=== PATIENT | female | born 2005 | race Caucasian/White ===

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

== ENCOUNTER 2025-01-02 11:24 | Emergency (ER) | payer MEDICAID, SELFPAY ==
[2025-01-02 11:34] VITALS: BP 137/89; PULSE 100; RESP 16; TEMP 36.7; O2SAT 95; BMI 35.1
--- NOTE | 2025-01-02 11:36 | ED_ITS ---
HPI - General Adult General: Chief complaint: General Medical Stated complaint: preg test Time Seen by Provider: 01/02/25 11:25 Source: patient Mode of arrival: ambulatory Limitations: no limitations History of Present Illness: Patient is a 19-year-old female presents to ED today requesting a test. She states she is 4 days late on her menstrual cycle which are normally regular. She states she is sexually active and trying for . She is not having any abdominal or pelvic pain/cramping or vaginal bleeding. She does report nausea. She states she plans on using Dr. Warren for OB care and does have an appointment with them tomorrow. Severity: mild Relieving factors: none Exacerbating factors: none Associated symptoms: Reports nausea; Deny chest pain, dyspnea or vomiting Treatments prior to arrival: none Related Data Allergies Allergy/AdvReac Type Severity Reaction Status Date / Time Penicillins Allergy RASH Verified 08/10/24 20:34 Review of Systems Const: Denies: fever(s) Card: Denies: chest pain Resp: Denies: dyspnea GI: Reports: nausea; Denies: abdominal pain, vomiting or change in bowel habits : Denies: flank pain, dysuria, hematuria or vaginal bleeding Musc: Denies: back pain PFSH ED PFSH: Medical History Normal vaginal delivery Spontaneous vaginal delivery No significant past medical history Surgical History S/P arthroscopic partial lateral meniscectomy of left knee Date of procedure: June 23, 2024 Pre-op diagnosis: 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 Procedure done: Right arthroscopic knee surgery with partial lateral meniscectomy, chondroplasty of the patella, and synovectomy. Surgeon: Mary Lou Quevedo MD. Status post laparoscopic cholecystectomy (06/20/21) S/P laparoscopic appendectomy (08/21/20) H/O myringotomy S/P tonsillectomy and adenoidectomy Social History Smoking and tobacco/nicotine status: never used tobacco/nicotine Second hand smoke exposure: No Alcohol intake: never Substance/Drug Use: never Physical Exam Const: COMMON NORMALS: no acute distress, average body habitus, no limitations, healthy appearing, alert and well nourished GENERAL APPEARANCE: cooperative GI: COMMON NORMALS: Normal to inspection, nondistended, normoactive bowel sounds present, Soft to palpation and non-tender PALPATION: Yes Soft to palpation Neuro: SENSORIUM/ORIENTATION: Yes alert Course Vital Signs: Vital signs: Vital Signs Temperature 98.1 F 01/02/25 11:34 Pulse Rate 100 01/02/25 11:34 Respiratory Rate 16 01/02/25 11:34 Blood Pressure 137/89 01/02/25 11:34 Pulse Oximetry 95 01/02/25 11:34 Oxygen Delivery Me thod Room Air 01/02/25 11:34 MDM - General Adult Medical Decision Making test is positive. There is nothing further that needs to be done emergently. She is not having any abdominal/pelvic pain. No vaginal bleeding. Plan will be to follow-up with Dr. Warren as scheduled tomorrow. Medical Records I reviewed the patient's medical records. Lab Data I reviewed the patient's lab results. Laboratory Results HCG, Qual Positive (Negative) H 01/02/25 11:30 No radiology studies performed this visit Discharge Plan Discharge Patient Disposition: Home Clinical Impression: Qualifiers: Weeks of gestation: unspecified Qualified Code(s): Z34.90 - Encounter for supervision of normal , unspecified, unspecified trimester Condition: Stable Discharge Orders: Discharge ED (Routine); Ordered 01/02/25 Ordered By: Leta Klein Referrals: Tulio Warren MD [Primary Care Provider, Family Practice] Patient Instructions: Patient Portal & Homero Instructions Activity Restrictions/Additional Instructions: As we discussed, your test here in the emergency department was positive. Please follow-up with Dr. Warren as scheduled tomorrow. Print Language: Azeri Coding Level of Care Code ED Sound System Installer for Narciso Horan
[2025-01-02 11:41] LABS: HCG Qualitative Urine. Positive (Negative)
== END 2025-01-02 11:45 | disposition home or self-care (01) ==
PROVIDERS: Emergency Medicine; Emergency Provider Physician Assistant; PCP Family Medicine
DX: Z32.01 Encounter for pregnancy test, result positive (principal)
CPT/HCPCS: 81025; 99283

== ENCOUNTER 2025-04-11 23:39 | Emergency (ER) | payer MEDICAID, SELFPAY ==
[2025-04-11 23:45] VITALS: BP 118/74; PULSE 115; RESP 18; TEMP 36.8; O2SAT 97; BMI 37.5
--- OUTSIDE RECORDS SUMMARY | 2025-04-11 23:45 | XMS_ITS | Continuity of Care Document ---
Author Organization [facility] [place], [facility] ([facility]) Address [address] [place] [address] Care Team Providers Care Process Checker Name Role Phone HERBERT WARREN Primary Care Provider Assessment No assessment recorded. Plan of Treatment Reminders Order Date Submit Date Provider Last Modified By Organization Details Last Modified Time Details Appointments RETURN OB 2024 01:45P M Herbert Warren MD Not available Not available Not available RETURN OB 2025 01:30P M Herbert Warren MD Not available Not available Not available ULTRASO UND 2025 02:30P M ULTRASOUND Not available Not available Not available RETURN OB 2025 01:30P M Herbert Warren MD Not available Not available Not available RETURN OB 2025 01:30P M Herbert Warren MD Not available Not available Not available RETURN OB 2025 01:30P M Herbert Warren MD Not available Not available Not available RETURN OB 2025 01:30P M Herbert Warren MD Not available Not available Not available RETURN OB 2025 01:30P M Herbert Warren MD Not available Not available Not available RETURN OB 2025 01:30P M Herbert Warren MD Not available Not available Not available RETURN OB 2025 01:30P M Herbert Warren MD Not available Not available Not available RETURN OB 2025 01:30P M Herbert Warren MD Not available Not available Not available RETURN OB 2025 01:30P M Herbert Warren MD Not available Not available Not available RETURN OB 2025 01:30P M Herbert Warren MD Not available Not available Not available Lab None recorde d. Referral None recorde d. Procedures None recorde d. Surgeries None recorde d. Imaging None recorde d. Medication Orders None recorde d. Patient TargetsNo targets recorded. Patient InstructionsNo instructions recorded. Reason for Referral None Reported. Results Created Date Observation Date Name Description Value Unit Range Abnormal Flag Note LastModifiedBy Organization Detail LastModifiedTime 02/01/2001/19/2025 US, obste tric, 1st trime ster No observ ation record ed. [email or web address] [facility] [place] ([facility]) [address] [place], [address], 01/31/2025 17:19:55 Result Notes None recorded. Problems Name Problem SNOMED Code Status Onset Date Resolution Date Notes Provider Name and Address Organization Details Recorded Time Otitis 43910593 Active 2021 OTITIS; 02/11/20 9:46AM by Kathy Hilliard, Office Visit; Promoted ; acuity set as *; OTITIS, RIGHT; 02/11/20 9:47AM by Kathy Hilliard, Office Visit; Promoted ; acuity set as *; KATHY celis [facility] 3 11:46:16 Anxiety 98610115 Active 2022 KATHY celis [facility] 3 11:46:16 Acne vulgaris 49083567 Active 2022 KATHY celis [facility] 3 11:46:16 Sprain of right knee 86667068239 578170 Active 2022 Herbert Warren MD [address] [place] [address], [phone], [facility] 16:24:18 Pregnanc y 18694604 Completed 202201/27/2024 Sandy celis [facility] 5 12:33:11 Gestatio n period, 11 weeks 05237476 Active 2023 Herbert Warren MD [address] [place] [address], [phone] 5, [facility] 4 10:51:57 Gestatio n period, 15 weeks 5955787 Active 2023 Herbert Warren MD [address] [place] [address], [phone] 5, [facility] 4 18:26:38 Gestatio n period, 19 weeks 20811524 Active 2023 Herbert Warren MD [address] [place] [address], [phone] 5, [facility] 4 10:52:28 Gestatio n period, 23 weeks 41967181 Active 2023 Herbert Warren MD [address] [place] [address], [phone] 5, [facility] 4 16:57:20 Gestatio n period, 27 weeks 86835276 Active 2023 Herbert Warren MD [address] [place] [address], [phone] 5, [facility] 4 16:22:57 Gestatio n period, 30 weeks 07878892 Active 2023 Herbert Warren MD [address] [place] [address], [phone] 5, [facility] 4 08:36:42 Gestatio n period, 31 weeks 36859523 Active 2023 Herbert Warren MD [address] [place] [address], [phone] 5, [facility] 4 16:35:11 Gestatio n period, 34 weeks 69916017 Active 2023 Herbert Warren MD [address] [place] [address], [phone] 5, [facility] 4 17:19:46 Gestatio n period, 37 weeks 74596499 Active 2023 Herbert Warren MD [address] [place] [address], [phone] 5, [facility] 4 16:41:10 Gestatio n period, 38 weeks 69617180 Active 2023 Herbert Warren MD [address] [place] [address], 55[address]-433 5, [facility] 4 14:05:05 Gestatio n period, 39 weeks 11908812 Active 2023 Herbert Warren MD [address] [place] [address], [phone] 5, [facility] 4 08:28:39 Superfic ial thrombop hlebitis 3406436 Active 2023 Herbert Warren MD [address] [place] [address], [phone] 5, [facility] 4 09:23:19 Mass of joint of right knee 42378325824 345288 Active 2023 Herbert Warren MD [address] [place] [address], [phone] 5, [facility] 4 12:13:15 Pain of right knee region 22457357202 4105 Active 2023 Herbert Warren MD [address] [place] [phone] 5, [facility] 4 17:09:03 Contact dermatit is 21139092 Active 2024 Herbert Warren MD [address] [place] [address] [phone] 5, [facility] 5 13:12:04 Seasonal allergic rhinitis 171806978 Active 2024 Herbert Warren MD [address] [place] [address], 78266-041 5, [facility] 5 13:12:11 Pregnanc y 23423704 Active 2024 [facility] 12:33:11 Postural dizzines s 456903123 Active 2024 Herbert Warren MD [address] [place] [address] 5, [facility] 5 17:49:13 Acute gastroen teritis 30112048 Active 2024 eHrbert Warren MD [address] [place] [address] 5, [facility] 17:49:26 Gestatio n period, 14 weeks 18738168 Active 2024 Herbert Warren MD [address] [place] [phone] 5, [facility] 15:38:26 Problem Notes None recorded. Procedures Surgical History Date Name Laterality Status Provider Name and Address Organization Details Recorded Time Appendectomy completed Telma Cote [facility] 06/15/2024 17:40:43 procedure on urinary bladder completed Telma Cote [facility] 06/15/2024 17:40:52 tonsilectomy/arpita oids completed KATHY ARMINDA [facility] 11/05/2022 16:00:00 Imaging Results None recorded. Procedure Notes None recorded. Medical Equipment None Reported. Allergies Allergen ID Allergen Name Allergen Category Reaction Reaction Severity Criticality Documentation Date Start Date Code Code System Note Provider Name and Address Organization Details Recorded Time 5042 Product containin g penicilli n (product) medicatio n Not available Not available Not available 11/04/2022 67303 8001 SNOMED KATHY HILLIARD lalita [facility] 14:22:05 5043 amoxicill in medicatio n Not available Not available Not available 11/04/2022 723 RxNorm KATHY DAWNG [facility]alita [facility] 16:11:49 06428 codeine medicatio n rash Not available low 12/26/2022 2670 RxNorm KATHY ARMINDAJohn celis [facility] 16:12:05 Medications Name Sig Start Date Stop Date Status Note LastModified by Organization Details LastModified Time clindamyc in HCl 300 mg capsule TAKE 1 CAPSULE BY MOUTH THREE TIMES DAILY 11/05 completed Not Available Not Available Not Available cetirizin e 10 mg tablet TAKE 1 TABLET BY MOUTH ONCE DAILY 01/03 completed Not Available Not Available Not Available azithromy kong 250 mg tablet TAKE 2 TABLETS BY MOUTH ON DAY 1, AND THEN TAKE 1 TABLET BY MOUTH ONCE A DAY ON DAY 2 THROUGH DAY 5 11/05 completed Not Available Not Available Not Available tretinoin 0.025 % topical cream APPLY TO THE AFFECTED AREA(S) BY TOPICAL ROUTE ONCE DAILY AT BEDTIME 12/26 completed Not Available Not Available Not Available triamcino lone acetonide 0.1 % topical cream APPLY TO AFFECTED AREAS 2-3 TIMES A DAY NEEDED FOR ITCHING AND RASH 11/05 completed Not Available Not Available Not Available Macrobid 100 mg capsule Take 1 capsule every 12 hours by oral route for 7 days. 12/26 completed Not Available Not Available Not Available cephalexi n 500 mg capsule TAKE 1 CAPSULE BY MOUTH EVERY 6 HOURS 01/24 completed Not Available Not Available Not Available ibuprofen 600 mg tablet TAKE 1 TABLET BY MOUTH EVERY 6 HOURS NEEDED FOR PAIN 04/10 completed Not Available Not Available Not Available ondansetr on 4 mg disintegr ating tablet DISSOLVE 1 TABLET IN MOUTH EVERY 4 TO 6 HOURS NEEDED FOR NAUSEA 01/03 completed Not Available Not Available Not Available cefdinir 300 mg capsule TAKE 1 CAPSULE BY MOUTH TWICE DAILY FOR 7 DAYS 01/03 completed Not Available Not Available Not Available fluticaso ne propionat e 50 mcg/actua tion nasal spray,georgette pension Winkelman 1 spray every day by intranas al route. 03/14 completed Not Available Not Available Not Available Vitamin 27 mg iron-0.8 mg tablet Take 1 tablet every day by oral route. 01/24 completed Not Available Not Available Not Available Sprintec (28) 0.25 mg-0.035 mg tablet TAKE 1 TABLET BY MOUTH ONCE DAILY 04/19 completed Not Available Not Available Not Available Ciprodex 0.3 %-0.1 % ear drops,georgette pension INSTILL 4 DROPS INTO AFFECTED EAR(S) INTO LEFT EAR TWICE DAILY FOR 7 DAYS 11/05 completed Not Available Not Available Not Available Flovent HFA 220 mcg/actua tion aerosol inhaler INHALE 1 PUFF BY MOUTH TWICE DAILY active Not Available Not Available No t Available clindamyc in HCl three times daily 12/10 completed 0; Recorded 02/11/20 22 9:50AM by Kathy Hilliard, Office Visit; Not Available Not Available Not Available ProAir HFA 90 mcg/actua tion aerosol inhaler as needed 12/10 completed 0; Recorded 02/11/20 22 9:49AM by Kathy Hilliard, Office Visit; Not Available Not Available Not Available diclofena c 1 % topical gel APPLY 4 GRAMS TO THE AFFECTED AREA(S) BY TOPICAL ROUTE 4 TIMES PER DAY 06/15 completed Not Available Not Available Not Available Plus 29 mg iron-1 mg tablet Take 1 tablet every day by oral route. 01/16 completed Not Available Not Available Not Available Vitamins Plus Low Iron 27 mg iron-1 mg tablet TAKE 1 TABLET BY MOUTH ONCE DAILY active Not Available Not Available No t Available ProAir RespiClic k 90 mcg/actua tion breath activated Inhale 2 puffs every 4 hours by inhalati on route as needed. 12/26 completed Not Available Not Available Not Available Vitals Date Recorded Body height Body mass index (BMI) [Percentile] Per age and sex Body mass index (BMI) Body weight Oxygen saturation Heart rate Respiratory rate Body temperature Systolic And Diastolic Provider Name and Address Organization Details Last Updated DateTime 157.48 cm 97.88 % 37.1 kg/m2 52543.2 5 g 99 % 82 /min 16 /min 98.2 [degF] 122/80 mm[Hg] Telma Martekristine [facility] 14:03:38 Social History Question Answer Notes LastModified by [employer] Details LastModified Time Tobacco Smoking Status Never Smoker Marion Karkristine [facility] 06/15/2024 17:40:23 What Is Your Level Of Caffeine Consumption? None [email or web address] Information not available 02/14/2025 Do You Or Have You Ever Used Marijuana? Never Used [email or web address] Information not available 02/14/2025 What Was The Date Of Your Most Recent Tobacco Screening? 03/14/2025 [email or web address] Information not available 03/14/2025 Sex: Unknown Functional Status Question Answer Note LastModified by [employer] Details LastModified Time Do you use any illicit or recreational drugs? No [email or web address] Information not available 02/14/2025 What is your level of alcohol consumption? None [email or web address] Information not available 02/14/2025 Mental Status None recorded. Family History Relationship Description Onset Age of this Age Resolved Age Notes LastModified by Organization Details LastModified Time Father Iron deficiency [email or web address] Not available 11/05 16:00:37 Notes:Iron Deficiency; Fathe r Medical History No medical history recorded. Gynecological History Statement/Question Response Flow Moderate Date of LMP 02/25/2023 LMP Definite Obstetrics History GPAL:G 2 P 1 0 0 1 Type Value Multiple Births 0 Full Term 1 Induced 0 Spontaneous 0 Premature 0 Living 1 Ectopics 0 Total 2 Immunizations Vaccine Type Date Status Note Provider Nam e and Address Organization Details Recorded Time HPV9 9 completed KATHY celis, [facility] 04/10/2023 08:15:44 IPV 9 completed KATHY celis [facility] 04/10/2023 08:15:44 MMR 1 completed KATHY celis [facility] 04/10/2023 08:15:44 MMR 7 completed KATHY celis [facility] 04/10/2023 08:15:44 pneumococcal conjugate PCV 7 6 [facility] 04/10/2023 08:15:44 pneumococcal conjugate PCV 7 7 completed KATHY celis [facility] 04/10/2023 08:15:44 pneumococcal conjugate PCV 7 6 [facility] 04/10/2023 08:15:44 pneumococcal conjugate PCV 7 7 completed KATHY celis [facility] 04/10/2023 08:15:44 DTaP-IPV 1 completed KATHY celis [facility] 04/10/2023 08:15:44 Tdap 9 completed KATHY celis [facility] 04/10/2023 08:15:44 Pneumococcal conjugate PCV 13 1 completed KATHY celis [facility] 04/10/2023 08:15:44 varicella 1 completed KATHYSA HILLIARD null, [facility] 04/10/2023 08:15:44 varicella 7 completed KATHY ARMINDA null, [facility] 04/10/2023 08:15:44 HPV, quadrivalent 9 completed KATHY ARMINDA null, [facility] 04/10/2023 08:15:44 Hep B, adolescent or pediatric 6 completed KATHY ARMINDA null, [facility] 04/10/2023 08:15:44 Hep A, ped/adol, 2 dose 8 completed KATHY DAWNG null, [facility] 04/10/2023 08:15:44 Hep A, ped/adol, 2 dose 9 completed KATHY HILLIARD null, [facility] 04/10/2023 08:15:44 Hib (PRP-T) 6 completed KATHY HILLIARD null, [facility] 04/10/2023 08:15:44 Hib (PRP-T) 7 completed KATHY HILLIARD null, [facility] 04/10/2023 08:15:44 Hib (PRP-T) 6 completed KATHY DAWNG null, [facility] 04/10/2023 08:15:44 Hib (PRP-T) 7 completed KATHY HILLIARD null, [facility] 04/10/2023 08:15:44 meningococcal MCV4P 9 completed KATHY DAWNG null, [facility] 04/10/2023 08:15:44 DTaP 8 completed KATHY DAWNJohn celis [facility] 04/10/2023 08:15:44 DTaP-Hep B-IPV 6 completed KATHY DAWNJohn celis [facility] 04/10/2023 08:15:44 DTaP-Hep B-IPV 7 completed KATHYSA ARMINDA celis [facility] 04/10/2023 08:15:44 DTaP-Hep B-IPV 6 completed KATHYSA ARMINDA celis [facility] 04/10/2023 08:15:44 meningococcal conjugate quadrivalent, MenACWY-TT (MCV4) 3 completed Not Available [facility] 03/14/2025 14:14:40 Tdap 4 completed Not Available [facility] 03/14/2025 14:14:40 Hep B, adolescent or pediatric 8 completed KATHY ARMINDAJohn celis [facility] 04/10/2023 08:15:44 Past Encounters Encounter ID Performer Location Encounter Start Date Encounter Closed Date Diagnosis/Indication Diagnosis SNOMED-CT Code Diagnosis ICD10 Code Diagnosis IMO Codes Diagnosis Note [id number] Herbert Warren MD [facility] ([facility]) [address] [place] [phone] 5 01/03/2025 12:29:45 01/03/2025 13:06:54 Normal in multigravida 6364920664 75246 Z34.80 82189964 Schedule the patient for for semester ultrasound . Will start her on prenatals. We will hold off on lab work at this time. No significan t concerns. Guidance provided on new . [id number] eHrbert Warren MD [facility] ([facility]) [address] [place] [phone] 5 01/09/2025 15:53:07 01/09/2025 16:26:52 Postural dizziness 117111007 R42 19677899 The patient to push fluids. Will provide a note for work to minimize bending kneeling and stooping. No lifting greater than 10 pounds at this time. Acute gastroenteritis 69 454346 K52.9 8743 Patient has mild gastroente ritis and this will likely resolve without further interventi on. Push fluids as above. [id number] PEPITO BERNSTEIN [facility] ([facility]) [address] [place] [address] 01/16/2025 13:50:58 01/16/2025 15:50:09 Blood pressure above reference range 82782568 R03.0 091119 BP reading normal here in clinic. Reassuranc e provided. Continue monitoring bp BID and call OB with results. Health Concerns Section Related Observation LastModified by Organization Detai ls LastModified Time None Recorded Concern Status LastModified by Organization Details LastModified Time None Recorded Payers Encounter Date Sequence Insurance Name Policy Number Policy Ro Covered Member ID Ro Member ID Guarantor Name 01/16/2025 1 [facility] (MEDICAID HMO) Lorenza Cerna [id number] Lorenza Cerna Notes Date Note Type Note Provider Name and Address Organization Details Recorded Time 5 text/html HypertensionReported by PatientROS as noted in the HPI walk in patientpatient is here today for hypertension, patient said that her blood pressure has been around 160/148 and she is 6 weeks . OB has asked her to check her bp twice a day and write down. Pt has her first OB US this week. Next OB appt is in February. No prior hx of HTN PEPITO BERNSTEIN [address] [place] [address], [phone], [facility] [place] 01/16/2025 15:44:16 OBGyn Episode Ob Episode Information Episode Created Date Number of Fetuses Patient Bloodtype Patient rh Status Prepregnancy Weight lbs Domestic Partner Domestic Partner Phone Father Name Sap Manager Status 01/04/20 25 1 A Positive [address] [place] OPEN Fetus Data First Name Last Name Admitted to NICU Weight (g) Sex Living Outcome Pediatric Complications Fetus ID Race Codes Race Delivery Type [id number] Zeeshan Calculation Initial Zeeshan Date Initial Exam Date Initial Exam Provider Initial Ultrasound Date Last Menstrual Period Date Ultra Sound Weeks Gestation 01/03/2025 01/18/2025 12/01/2024 6 Eighteen To Twenty Week Zeeshan Update Ultra Sound Date Fundal Height At Umbil Quickening Date Ultra Sound Latest Weeks Gestation Final Zeeshan Confirmed By Final Zeeshan Confirmed Date Final Zeeshan Date Ultra Sound Latest Days Gestation 0 09/13/19 26 0 Pre-margarito Flowsheet Flowsheet Date 01/03/2025 Tristan Score Blood Edema Fundus Height Fundus Units Glucose Ketones Leukocytes Nitrite Labor Signs Protein Cervic Dilation Cervic Effacement Cervic Station Type Weight in lbs Pre/Post Dialysis Refused Weight 205.105451186535 BP Diastolic BP Location Tested BP Systolic BP Type 74 122 Fetus Heart Rate Present Fetus Movement Comments Flowsheet Date 01/09/2025 Tristan Score Blood Edema Fundus Height Fundus Units Glucose Ketones Leukocytes Nitrite Labor Signs Protein Cervic Dilation Cervic Effacement Cervic Station Type Weight in lbs Pre/Post Dialysis Refused With clothes 206.142714158500 BP Diastolic BP Location Tested BP Systolic BP Type 90 L arm 142 sitting Fetus Heart Rate Present Fetus Movement Comments Flowsheet Date 01/16/2025 Tristan Score Blood Edema Fundus Height Fundus Units Glucose Ketones Leukocytes Nitrite Labor Signs Protein Cervic Dilation Cervic Effacement Cervic Station Type Weight in lbs Pre/Post Dialysis Refused Weight 203.966554872269 BP Diastolic BP Location Tested BP Systolic BP Type 80 122 Fetus Heart Rate Present Fetus Movement Comments Flowsheet Date 01/18/2025 Tristan Score Blood Edema Fundus Height Fundus Units Glucose Ketones Leukocytes Nitrite Labor Signs Protein Cervic Dilation Cervic Effacement Cervic Station Type Weight in lbs Pre/Post Dialysis Refused BP Diastolic BP Location Tested BP Systolic BP Type Fetus Heart Rate Present Fetus Movement Comments Flowsheet Date 02/14/2025 Tristan Score Blood Edema Fundus Height Fundus Units Glucose Ketones Leukocytes Nitrite Labor Signs Protein Cervic Dilation Cervic Effacement Cervic Station none none none Negative trace Type Weight in lbs Pre/Post Dialysis Refused With clothes 206.636918048984 BP Diastolic BP Location Tested BP Systolic BP Type 74 L arm 118 sitting Fetus Heart Rate Present Fetus Movement A No Comments Flowsheet Date 03/14/2025 Tristan Score Blood Edema Fundus Height Fundus Units Glucose Ketones Leukocytes Nitrite Labor Signs Protein Cervic Dilation Cervic Effacement Cervic Station none none Negative trace Type Weight in lbs Pre/Post Dialysis Refused Weight 203.311961650437 BP Diastolic BP Location Tested BP Systolic BP Type Fetus Heart Rate Present A 150 Fetus Movement Comments Menstrual History Last Menstrual Date Menses Monthly On Bcp Conception Prior Menses Frequency Hcg Plus Date Menarche Onset Age 0712/01/2024 Genetic Screening And Infection History Question Response Note Patient's Age Will Be 35 Years Or Older At Estim ated Date of Delivery false Thalassemia (Tajik, South African, Mediterranean, Or Background): MCV < 80 false Neural Tube Defect (Meningomyelocele, Spina Bifi da, Or Anencephaly) false Congenital Heart Defect false Down Syndrome false Zack-Sachs (eg, Presybeterian, Cajun, Cypriot-Russell) f alse Laurent Disease false Sickle Cell Disease Or Trait () false Hemophilia Or Other Blood Disorders false Muscular Dystrophy false Cystic Fibrosis true Sudhakar's Chorea false Intellectual Disability/Autism true If Yes, Was Person Tested For Fragile X? false Other Inherited Genetic Or Chromosomal Disorder false Maternal Metabolic Disorder (eg, Type 1 Diabetes , PKU) false Patient Or Baby's Father Had A Child With Defects Not Listed Above false Recurrent Loss, Or A Stillbirth false Medications (including Suppl ements, Vitamins, Herbs, OTC Drugs), Illicit/Recreational Drugs, Alcohol false If Yes, Agent(s) And Strength/Dosage false Any Other Genetic History false Live With Someone With TB Or Exposed To TB false Patient Or Partner Has History Of Genital Herpes false Rash Or Viral Illness Since Last Menstrual Perio d false History Of STD, Gonorrhea, Chlamydia, HPV, Syphi lis false Other Infection History false History of HIV false History of Hepatitis false Prior GBS-infected child false Hemoglobinopathy Or Carrier false Other Structural Defect false Recent Travel History Outside of Country false Mental Retardation/Autism false Delivery Information Delivery Date Delivery Type Labor Anesthesia Weeks Gestation Incision Type Labor Labor Length Hrs Delivered By Post Complications Tubal Sterilization Discharge Date Comments Discharge Information Feeding Method Contraceptive Method Maternal HG B and HCT Levels
--- OUTSIDE RECORDS SUMMARY | 2025-04-11 23:45 | XMS_ITS | Continuity of Care Document ---
Author Organization [facility]St[facility] Hospital[facility], [facility] ([facility] [place]) Address [address] [place] [address] Care Team Providers Care Color Laboratory Technician Name Role Phone HERBERT WARREN Primary Care Provider Assessment Encounter Date Assessment Date Assessment LastModified by Organization Details LastModified Time 03/14/2025 03/14/2025 19-year-old female with no significant medical history presenting for a routine office visit. The patient denied any health concerns, and all labs were normal. [id number] Not available 03/14/2025 14:41:22 Plan of Treatment Reminders Order Date Submit [...] Not available RETURN OB 2025 01:30P M Herebrt Warren MD Not available Not available Not [...] recorde d. Patient TargetsNo targets recorded. Patient Instructions Encounter Date Encounter Id Patient Instructions Last Modified By Organization Details Last Modified Time 03/14/2025 [id number] - Maintain [facility] health practices and routines. - Continue to monitor for any new symptoms and report them if they arise. - Attend the next scheduled follow-up appointment in one month. [id number] Not available 03/14/2025 14:41:24 I discussed with the patient that her laboratory results were within normal limits. We reviewed her cardiac status, noting a strong heart with no abnormalities identified during the physical examination. The importance of regular follow-up was emphasized, and I reminded the patient to report any concerns or new symptoms that may arise before the next scheduled visit. [id number] Not available 03/14/2025 14:41:25 Reason for Referral None Reported. Results Created Date Observation Date Name Description Value Unit Range Abnormal Flag Note LastModifiedBy Organization Detail LastModifiedTime 02/24/2003/02/2025 HIV 1/2 ANTIG EN/AN TIBOD Y,FOU RTH GENER ATION W/RFL HIV final interpretati on HIV NEGATI VE normal HIV-1 antig en and HIV-1 /HIV- 2 antib odies were not detec joao. There is no labor atory evide nce of HIV infec tion. Not Available [facility] [address] [place], [address], 03/02/2025 16:26:04 02/24/20 25 03/02/2025 HIV 1/2 ANTIG EN/AN TIBOD Y,FOU RTH GENER ATION W/RFL HIV Ag/Ab, screen NON-RE ACTIVE non-re active normal Not Available [address], [address], 03/02/2025 16:26:04 02/24/2003/02/2025 URINA LYSIS , COMPL ETE color YELLOW yellow normal Not Available [address], [address], 03/02/2025 16:26:04 02/24/2003/02/2025 URINA LYSIS , COMPL ETE appearance CLEAR clear normal Not Available [address], [address], 03/02/2025 16:26:04 02/24/2003/02/2025 URINA LYSIS , COMPL ETE specific gravity 1.024 1.001- 1.035 normal Not Available [address], [address], 03/02/2025 16:26:04 02/24/2003/02/2025 URINA LYSIS , COMPL ETE pH 6.5 5.0-8. 0 normal Not Available [address], [address], 03/02/2025 16:26:04 02/24/2003/02/2025 URINA LYSIS , COMPL ETE glucose NEGATI VE negati ve normal Not Available [address], [address], 03/02/2025 16:26:04 02/24/2003/02/2025 URINA LYSIS , COMPL ETE bilirubin NEGATI VE negati ve normal Not Available [address], [address], 03/02/2025 16:26:04 02/24/2003/02/2025 URINA LYSIS , COMPL ETE ketones NEGATI VE negati ve normal Not Available [address] [place], [address], 03/02/2025 16:26:04 02/24/2003/02/2025 URINA LYSIS , COMPL ETE occult blood NEGATI VE negati ve normal Not Available [address], [address], 03/02/2025 16:26:04 02/24/2003/02/2025 URINA LYSIS , COMPL ETE protein TRACE negati ve abnormal Not Available [address], [address], 03/02/2025 16:26:04 02/24/2003/02/2025 URINA LYSIS , COMPL ETE nitrite NEGATI VE negati ve normal Not Available [address], [address], 03/02/2025 16:26:04 02/24/2003/02/2025 URINA LYSIS , COMPL ETE leukocyte esterase NEGATI VE negati ve normal Not Available [address], [address], 03/02/2025 16:26:04 02/24/2003/02/2025 URINA LYSIS , COMPL ETE WBC 0-5 /hpf < or = 5 normal Not Available [address], [address], 03/02/2025 16:26:04 02/24/2003/02/2025 URINA LYSIS , COMPL ETE RBC NONE SEEN /hpf < or = 2 normal Not Available [address], [address], 03/02/2025 16:26:04 02/24/2003/02/2025 URINA LYSIS , COMPL ETE squamous epithelial cells 10-20 /hpf < or = 5 abnormal Not Available [address], [address], 03/02/2025 16:26:04 02/24/2003/02/2025 URINA LYSIS , COMPL ETE bacteria FEW /hpf none seen abnormal Not Available [address], [address], 03/02/2025 16:26:04 02/24/2003/02/2025 URINA LYSIS , COMPL ETE hyaline cast NONE SEEN /lpf none seen normal Not Available [address], [address], 03/02/2025 16:26:04 02/24/2003/02/2025 URINA LYSIS , COMPL ETE note This urine was judith zed for the prese nce of WBC, RBC, bacte guerita, casts , and other forme d eleme nts. Only those eleme nts seen were repor joao. Not Available [address], [address], 03/02/2025 16:26:04 02/24/2003/02/2025 CBC (INCL UDES DIFF/ PLT) white blood cell count 10.8 thous and/u L 3.8-10 .8 normal Not Available [address], [address], 03/02/2025 16:26:05 02/24/2003/02/2025 CBC (INCL UDES DIFF/ PLT) red blood cell count 4.58 sweta on/uL 3.80-5 .10 normal Not Available [address], [address], 03/02/2025 16:26:05 02/24/2003/02/2025 CBC (INCL UDES DIFF/ PLT) hemoglobin 13.1 g/dL 11.7-1 5.5 normal Not Available [address], [address], 03/02/2025 16:26:05 02/24/20 25 03/02/2025 CBC (INCL UDES DIFF/ PLT) hematocrit 41.4 % 35.0-4 5.0 normal Not Available [address], [address], 03/02/2025 16:26:05 02/24/20 25 03/02/2025 CBC (INCL UDES DIFF/ PLT) MCV 90.4 fL 80.0-1 00.0 normal Not Available [address], [address], 03/02/2025 16:26:05 02/24/2003/02/2025 CBC (INCL UDES DIFF/ PLT) MCH 28.6 pg 27.0-3 3.0 normal Not Available [address], [address], 03/02/2025 16:26:05 02/24/2003/02/2025 CBC (INCL UDES DIFF/ PLT) MCHC 31.6 g/dL 32.0-3 6.0 low For adult s, a sligh t decre ase in the calcu lated MCHC value (in the range of 30 to 32 g/dL) is most likel y not clini skyler signi fican t; wagner er, it shoul d be inter prete d with cauti on in corre lat n with other red cell padmini eters and the patie nt's clini basil condi tion. Not Available [address], [address], 03/02/2025 16:26:05 02/24/2003/02/2025 CBC (INCL UDES DIFF/ PLT) RDW 13.8 % 11.0-1 5.0 normal Not Available [address] [place], [address], 03/02/2025 16:26:05 02/24/2003/02/2025 CBC (INCL UDES DIFF/ PLT) platelet count 269 thous and/u L 140-40 0 normal Not Available [address], [address], 03/02/2025 16:26:05 02/24/2003/02/2025 CBC (INCL UDES DIFF/ PLT) MPV 9.7 fL 7.5-12 .5 normal Not Available [address], [address], 03/02/2025 16:26:05 02/24/2003/02/2025 CBC (INCL UDES DIFF/ PLT) absolute neutrophils 7668 cells /uL 1500-7 800 normal Not Available [address], [address], 03/02/2025 16:26:05 02/24/2003/02/2025 CBC (INCL UDES DIFF/ PLT) absolute lymphocytes 2527 cells /uL 850-39 00 normal Not Available [address], [address], 03/02/2025 16:26:05 02/24/20 25 03/02/2025 CBC (INCL UDES DIFF/ PLT) absolute monocytes 454 cells /uL 200-95 0 normal Not Available [address], [address], 03/02/2025 16:26:05 02/24/2003/02/2025 CBC (INCL UDES DIFF/ PLT) absolute eosinophils 97 cells /uL 15-500 normal Not Available [address], [address], 03/02/2025 16:26:05 02/24/2003/02/2025 CBC (INCL UDES DIFF/ PLT) absolute basophils 54 cells /uL 0-200 normal Not Available [address], [address], 03/02/2025 16:26:05 02/24/20 25 03/02/2025 CBC (INCL UDES DIFF/ PLT) neutrophils 71 % normal Not Available [address], [address], 03/02/2025 16:26:05 02/24/20 25 03/02/2025 CBC (INCL UDES DIFF/ PLT) lymphocytes 23.4 % normal Not Available [address], [address], 03/02/2025 16:26:05 02/24/20 25 03/02/2025 CBC (INCL UDES DIFF/ PLT) monocytes 4.2 % normal Not Available [address], [address], 03/02/2025 16:26:05 02/24/20 25 03/02/2025 CBC (INCL UDES DIFF/ PLT) eosinophils 0.9 % normal Not Available [address], [address], 03/02/2025 16:26:05 02/24/2003/02/2025 CBC (INCL UDES DIFF/ PLT) basophils 0.5 % normal Not Available [address], [address], 03/02/2025 16:26:05 02/24/20 25 03/02/2025 HEPAT ITIS B SURFA CE ANTIG EN W/REF L CONFI RM hepatitis B surface antigen NON-RE ACTIVE non-re active normal For addit ional infor terese villalpando e refer to http: //[facility] jamie mchugh.que stdia gnost ics.c om/fa q/FAQ (This link is being provi ded for infor bossman bell/ educifeoma navas l purpo ses only. ) Not Available [address], [address], 03/02/2025 16:26:05 02/24/2003/02/2025 HEPAT ITIS C AB W/REF L TO HCV RNA, QN, PCR hepatitis C antibody NON-RE ACTIVE non-re active normal HCV antib afshin was non-r eacti ve. There is no labor atory evide nce of HCV infec tion. In most cases , no furth er actio n is requi red. Howev er, if recen t HCV expos ure is suspe cted, a test for HCV RNA (test code 14991 ) is sugge sted. For addit ional infor bossman mchugh pleas e refer to http: //[facility] jamie monreal stdia gnost ics.c om/fa q/FAQ 22v1 (This link is being provi ded for infor bossman bell/ educa yosef l purpo ses only. ) Not Available [facility] [address] [address] [place], [address], 03/02/2025 16:26:05 02/24/2003/02/2025 RUBEL LA AB (IGG) , IMMUN E STATU S rubella Ab (IgG), immune status 1.07 index normal Index Inter preta tion ----- ----- ----- ---- <0.90 Not consi stent with immun ity 0.90- 0.99 Equiv ocal > or = 1.00 Consi stent with immun ity The prese nce of rubel la IgG antib afshin sugge sts immun izati on or past or curre nt infec tion with rubel la virus . Not Available [facility] [address] [place], [address], 03/02/2025 16:26:06 02/24/2003/02/2025 QNATA L(R) ADVAN CARLITOS number of fetuses? 1 Not Available [facility] [address] [place], [address], 03/02/2025 16:26:06 02/24/2003/02/2025 QNATA L(R) ADVAN CARLITOS advanced maternal age? NOT GIVEN Not Available [address] [address] [place], [address], 03/02/2025 16:26:06 02/24/20 25 03/02/2025 QNATA L(R) ADVAN CARLITOS abnormal sena? NOT GIVEN Not Available [address] [address] [place], [address], 03/02/2025 16:26:06 02/24/20 25 03/02/2025 QNATA L(R) ADVAN CARLITOS abnormal US? NOT GIVEN Not Available [facility] [address] [address] [place], [address], 03/02/2025 16:26:06 02/24/20 25 03/02/2025 QNATA L(R) ADVAN CARLITOS personal/fam history? NOT GIVEN Not Available [address] [address] [place], [address], 03/02/2025 16:26:06 02/24/2003/02/2025 QNATA L(R) ADVAN CARLITOS interpretati on SEE NOTE This speci men showe d an expec joao repre senta tion of chrom osome 21, 18, and 13 mater ial. See Tommy victor below . Not Available [address] [address] [place], [address], 03/02/2025 16:26:06 02/24/20 25 03/02/2025 QNATA L(R) ADVAN CARLITOS trisomy 21 (T21) NEGATI VE Not Available [facility] [address] [address] [place], [address], 03/02/2025 16:26:06 02/24/20 25 03/02/2025 QNATA L(R) ADVAN CARLITOS trisomy 18 (T18) NEGATI VE Not Available [address] [address] [place], [address], 03/02/2025 16:26:06 02/24/20 25 03/02/2025 QNATA L(R) ADVAN CARLITOS trisomy 13 (T13) NEGATI VE Not Available [address], [address], 03/02/2025 16:26:06 02/24/20 25 03/02/2025 QNATA L(R) ADVAN CARLITOS Y chromosome DETECT ED Not Available [address], [address], 03/02/2025 16:26:06 02/24/2003/02/2025 QNATA L(R) ADVAN CARLITOS Y chr. interpretati on SEE NOTE Consi stent with a male fetus . Not Available [address], [address], 03/02/2025 16:26:06 02/24/2003/02/2025 QNATA L(R) ADVAN CARLITOS sex chromosome NO ANEUPL OIDY Not Available [address], [address], 03/02/2025 16:26:06 02/24/2003/02/2025 QNATA L(R) ADVAN CARLITOS sex chromosome interp SEE NOTE No appar ent abnor malit y was detec joao. See Tommy victor below . Not Available [address], [address], 03/02/2025 16:26:06 02/24/2003/02/2025 QNATA L(R) ADVAN CARLITOS microdeletio n NOT DETECT ED Not Available [address], [address], 03/02/2025 16:26:06 02/24/20 25 03/02/2025 QNATA L(R) ADVAN CARLITOS microdeletio n interp SEE NOTE No appar ent abnor malit y was detec joao. See Limi tatio ns below . Not Available [address], [address], 03/02/2025 16:26:06 02/24/20 25 03/02/2025 QNATA L(R) ADVAN CARLITOS gestational age(in weeks) 11 Not Available [address], [address], 03/02/2025 16:26:06 02/24/20 25 03/02/2025 QNATA L(R) ADVAN CARLITOS gestational age (in days) 2 Not Available [address], [address], 03/02/2025 16:26:06 02/24/2003/02/2025 QNATA L(R) ADVAN CARLITOS fraction 10.10% Not Available [address], [address], 03/02/2025 16:26:06 02/24/2003/02/2025 QNATA L(R) ADVAN CARLITOS laboratory comments SEE NOTE A porti on of the testi ng was perfo rmed at [facility] . Labor atory resul ts and submi tted clini basil infor matio n revie wed by Denice Ibarra, PhD, FACMG , [facility]. Not Available [address], [address], 03/02/2025 16:26:06 02/24/2003/02/2025 QNATA L(R) ADVAN CARLITOS limitations SEE NOTE QNata l(R) Advan carlitos is a cell- free DNA scree jony test that scree ns for incre ased risk of certa in chrom osoma l abnor malit ies that may cause defec ts, inclu ding Triso my 21 (Down syndr ome), Triso my 18, Triso my 13, and certa in sex chrom osome abnor malit ies (i.e. , 45,X, 47,XX Y, 47,XX X, and 47,XY Y), as well as sex. In addit ion, if selec joao as an optio n, QNata l(R) Advan carlitos can scree n for certa in micro delet ions (i.e. , 22q, 5p, 1p36, 15q, 11q, 8q, and 4p) that may cause defec ts. This test does not asses s the risk of abnor malit ies such as neura l tube defec ts or ventr al wall defec ts and shoul d not be consi dered in isola tion from other clini basil findi ngs and labor atory test resul ts. QNata l(R) Advan carlitos has been valid ated in [place] pregn ancie s for the triso mies and sex chrom osome abnor malit ies liste d above , as well as for micro delet ions, and for the deter minat ion of sex. Sex chrom osome aneup loidy judith sis is only perfo rmed in [facility] pregn ancie s. This scree jony test has also been valid ated in twin pregn ancie s for the triso mies liste d above and for micro delet ions, but not for the sex chrom osome abnor malit ies due to limit ed data. This scree jony test has not been valid ated in highe r order pregn ancie s (more than two) becau se limit ed data is avail able. Sex chrom osoma l aneup loidy resul ts issue d for pregn ancie s confi rmed to be of multi ple gesta tions are not valid and shoul d be disre bailey hendrickson. Micro delet ion scree jony is limit ed to the speci fied micro delet ion regio ns (see Meth odolo gy ). The Y chrom osome is judith zed for the deter minat ion of sex. The sensi tivit y and speci ficit y of sex deter minat ion judith sis may be less than that of the Triso my 21, 18, and 13 judith sis and this deter minat ion can be confo unded by vanis olga twin syndr ome in pregn ancie s that were origi grayson multi ple gesta tion pregn ancie s. It shoul d be noted that QNata l(R) Advan carlitos is a quant itati ve judith sis of mater nal and place ntal cfDNA . As a resul t, the accur acy of scree jony resul ts may be affec joao by the prese nce of chrom osome abnor malit ies or micro delet ions that are mater nal or confi gurinder place ntal in origi n. Not Available [address] [place], [address], 03/02/2025 16:26:06 02/24/20 25 03/02/2025 QNATA L(R) ADVAN CARLITOS specificatio ns SEE NOTE Sensi tivit y Speci ficit y T21 >99.9 % >99.9 % T18 >99.9 % >99.9 % T13 >99.9 % >99.9 % Accur acy Y >99.9 % Perfo rmanc e of the QNata l Advan carlitos labor atory -deve loped test (LDT) has been deter mined based on inter nal judith tical asses sment . Not Available [address] [place], [address], 03/02/2025 16:26:06 02/24/2003/02/2025 QNATA L(R) ADVAN CARLITOS methodology SEE NOTE Circu latin g cell- free (cf) DNA was isola joao from plasm a follo wed by detec tion on a massi vely paral lel seque ncing platf orm. Bioin forma tic judith sis was perfo rmed to deter mine the repre senta tion of chrom osome s 21, 18, 13, X and Y in circu latin g cell- free DNA. The repre senta tion of seque nces from the criti basil regio ns invol sonam in 1p36 micro delet ion syndr ome (1p36 ), Hebert- Lance hhorn syndr ome (4p), Cri-d u-andrés t syndr ome (5p), Jane r-Marielmars naya syndr ome (8q), Vishal sen syndr ome (11q) , Jaqueline r Willi syndr ome/A ngelm an syndr ome (15q) , and DiGeo rge syndr ome (22q) is evalu ated for the detec tion of micro delet ions if reque sted. Perfo rmanc e yoselin cteri stics refer to the judith tical perfo rmanc e of this scree jony test. This scree jony test is perfo rmed pursu ant to a licen se agree ment with Seque nom Labor atori es. QNata l Advan carlitos is a labor atory devel oped test that has been devel oped and valid ated, pursu ant to the Clini basil Labor atory Impro vemen ts Amend ments of 1987 (CLIA ), and as such it has not been revie wed by FDA. Not Available [facility] [address] [address] [address], [place], [address], 03/02/2025 16:26:06 02/24/2003/02/2025 TEST IN [facility]- KENNETH NG REQUI RED INFO comment We are unabl e to compl ete the test( s) noted below due to kenneth requi red infor matio n. Not Available [facility] [address] [address] [address], [place], [address], 03/02/2025 16:26:07 02/24/2003/02/2025 TEST IN [facility]- KENNETH NG REQUI RED INFO missing info: 29724 -QNAT AL(R) ADVAN CARLITOS Estim ated Date of Deliv nishant: Numbe r of Fetus es: Pleas e conta ct [facility] to verif y the above mater nal infor matio n for this patie nt. Not Available [facility] [address] [address] [address], [place], [address], 03/02/2025 16:26:07 02/24/2003/02/2025 TEST IN [facility]- KENNETH NG REQUI RED INFO contact: * Not Available [address], [address], 03/02/2025 16:26:07 02/24/2003/02/2025 TEST IN [facility]- KENNETH REQUI RED INFO comment To preve nt furth er delay s in testi , terese e compl ete infor matparul n above and fax to [phone] to resol ve this order . Autho rized Signa ture: __ Not Available [address] [place], [address], 03/02/2025 16:26:07 02/24/2003/02/2025 ARMEN FLORES/ Anny. GONOR RHOEA E RNA, TMA, UROGE NITAL chlamydia trachomatis RNA, tma, urogenital NOT DETECT ED not detect ed normal Not Available [address], [address], 03/02/2025 16:26:07 02/24/20 25 03/02/2025 CHLAM YDIA/ N. GONOR RHOEA E RNA, TMA, UROGE NITAL neisseria gonorrhoeae RNA, tma, urogenital NOT DETECT ED not detect ed normal Not Available [facility] [address] [place], [address], 03/02/2025 16:26:07 02/24/20 25 03/02/2025 CHLAM YDIA/ N. GONOR RHOEA E RNA, TMA, UROGE NITAL comment The judith tical perfo rmanc e yoselin cteri stics of this assay , when used to test SureP ath(T M) speci mens have been deter mined by [facility]. The modif icati ons have not been clear ed or appro sonam by the FDA. This assay has been valid ated pursu ant to the CLIA regul ation s and is used for clini basil purpo ses. For addit ional infor terese villalpando e refer to https ://ed ucati on.qu estReliantHeart. [employer]/f aq/FA Q154 (This link is being provi ded for infor bossman mchugh/ mayito barrow purpo ses only. ) Not Available [facility] [address] [address] [address], [place], [address], 03/02/2025 16:26:07 02/24/20 25 03/02/2025 RPR (DX) W/REF L TITER AND T. PALLI DUM AB, IA RPR (DX) w/refl titer and confirmatory testing NON-RE ACTIVE non-re active normal No labor atory evide nce of syphi lis. If recen t expos ure is suspe cted, submi t a new sampl e in 2-4 weeks . Not Available [facility] [address] [address] [place], [address], 03/02/2025 16:26:07 02/24/20 25 03/02/2025 ANTIB AFSHIN SCREE N, RBC W/REF L ID, TITER AND AG antibody screen, RBC w/refl id, titer and Ag NO ANTIBO DIES DETECT ED normal Refer ence range No antib odies detec joao This assay is a scree jony test for the detec tion of red blood cell antib odies . The test is not to be used for pretr ansfu rey scree jony or for the medic al manag ement of an alloi mmuni zed pregn nolan. Not Available [facility] [address] [place], [address], 03/02/2025 16:26:08 02/24/2003/02/2025 ABO GROUP AND RH TYPE ABO group A Not Available [facility] [address] [address] [place], [address], 03/02/2025 16:26:08 02/24/2003/02/2025 ABO GROUP AND RH TYPE Rh type RH(D) POSITI VE For addit ional infor terese villalpando e refer to http: //[facility] jamie Monreal stDia gnost ics.c om/fa q/FAQ 111 (This link is being provi ded for infor bossman bell/ educa yosef l purpo ses only. ) Not Available [facility] [address] [address] [place], [address], 03/02/2025 16:26:08 02/24/2003/02/2025 DRUG MONIT OR, PANEL 1, SCREE N, URINE amphetamines NEGATI VE NG/mL <500 See Note A See Note A Not Available [facility] [address] [address] [place], [address], 03/02/2025 16:26:08 02/24/2003/02/2025 DRUG MONIT OR, PANEL 1, SCREE N, URINE barbiturates NEGATI VE NG/mL <300 See Note A See Note A Not Available [facility] [address] [address] [place], [address], 03/02/2025 16:26:08 02/24/2003/02/2025 DRUG MONIT OR, PANEL 1, SCREE N, URINE benzodiazepi dorothea NEGATI VE NG/mL <100 See Note A See Note A Not Available [facility] [address] [address] [address], [place], [address], 03/02/2025 16:26:08 02/24/2003/02/2025 DRUG MONIT OR, PANEL 1, SCREE N, URINE cocaine metabolite NEGATI VE NG/mL <150 See Note A See Note A Not Available [facility] [address] [address] [address], [place], [address], 03/02/2025 16:26:08 02/24/2003/02/2025 DRUG MONIT OR, PANEL 1, SCREE N, URINE marijuana metabolite NEGATI VE NG/mL <20 See Note A See Note A Not Available [facility] [address] [address] [address], [place], [address], 03/02/2025 16:26:08 02/24/2003/02/2025 DRUG MONIT OR, PANEL 1, SCREE N, URINE methadone metabolite NEGATI VE NG/mL <100 See Note A See Note A Not Available [facility] [address] [address] [address], [place], [address], 03/02/2025 16:26:08 02/24/2003/02/2025 DRUG MONIT OR, PANEL 1, SCREE N, URINE opiates NEGATI VE NG/mL <100 See Note A See Note A Not Available [facility] [address] [address] [address], [place], [address], 03/02/2025 16:26:08 02/24/2003/02/2025 DRUG MONIT OR, PANEL 1, SCREE N, URINE oxycodone NEGATI VE NG/mL <100 See Note A See Note A Not Available [facility] [address] [address] [address], [place], [address], 03/02/2025 16:26:08 02/24/2003/02/2025 DRUG MONIT OR, PANEL 1, SCREE N, URINE phencyclidin e NEGATI VE NG/mL <25 See Note A See Note A Not Available [address] [address] [address], [place], [address], 03/02/2025 16:26:08 02/24/2003/02/2025 DRUG MONIT OR, PANEL 1, SCREE N, URINE creatinine 236.6 mg/dL > or = 20.0 Not Available [facility] [address] [address] [address], [place], [address], 03/02/2025 16:26:08 02/24/2003/02/2025 DRUG MONIT OR, PANEL 1, SCREE N, URINE pH 7.4 4.5-9. 0 Not Available [address] [address] [address], [place], [address], 03/02/2025 16:26:08 02/24/2003/02/2025 DRUG MONIT OR, PANEL 1, SCREE N, URINE oxidant NEGATI VE mcg/m L <200 Not Available [address] [address] [address] , [place], [address], 03/02/2025 16:26:08 02/24/2003/02/2025 DRUG MONIT ORING TEMPL ATE notes and comments This drug testi ng is for medic al treat ment only. Judith sis was perfo rmed as non-f orens ic testi ng and these resul ts shoul d be [facility] only [facility] to rende r diagn osis or treat ment, or to monit or progr ess of medic al condi tions . Note A: The resul ts are presu mptiv e; based only on elmer noonan, and they have not been confi rmed by a defin itive ozzie hendrickson. [facility] Provi ders needi ng Inter preta tion jennifer tance , pleas e conta ct us at 1.877 .40.R XTOX (1.87 [phone] ) M-F, 8am to 10pm EST Not Available [facility] [address] [address], [place], [address], 03/02/2025 16:26:09 02/24/20 25 03/02/2025 CULTU RE, URINE , ROUTI NE culture, urine, routine SEE NOTE abnormal CULTU RE, URINE , ROUTI NE Micro Numbe r: [id number] Test Statu s: Final Speci men Sourc e: Urine Speci men Quali ty: Adequ ate Resul t: 50,00 0-99, 000 CFU/m L of Esche paola a coli COMME NT: Addit ional non-p redom inati ng organ ism(s ) isola joao. These organ isms, commo nly found on exter nal and inter nal genit fannie, are consi dered colon izers . No furth er testi ng perfo rmed. E.col i ----- ----- ----- - INT SHA AMOX/ CLAVU LANAT E S <=2 AMP/S ULBAC CRISTOBAL S <=2 CEFAZ LYNETTE NR <=1 2 CEFEP AISHA S <=0.1 2 CEFTA ZIDIM E S <=0.5 CEFTR IAXON E S <=0.2 5 CIPRO FLOXA KONG S <=0.0 6 GENTA MICIN S <=1 IMIPE NEM S <=0.2 5 LEVOF LOXAC IN S <=0.1 2 MEROP ENEM S <=0.2 5 NITRO FURAN TOIN S <=16 PIP/T AZOBA CTAM S <=4 TRIME THOPR IM/RIVERA LFA S <=20 S = Susce ptibl e I = Inter media te R = Resis tant NS = Not susce ptibl e SDD = Susce ptibl e Dose Depen dent * = Not Teste d NR = Not Repor joao NN = See Thera py Comme nts THERA PY COMME NTS Note 1: For infec tions other than uncom plica joao UTI cause d by E. coli, K. pneum oniae or P. mirab ilis: Cefaz lynette is resis tant if SHA > or = 8 mcg/m L. (Dist ingui shing susce ptibl e versu s inter media te for isola chuck with SHA < or = 4 mcg/m L requi res addit ional testi ng.) Note 2: For uncom plica joao UTI cause d by E. coli, K. pneum oniae or P. mirab ilis: Cefaz lynette is susce ptibl e if SHA <32 mcg/m L and predi cts susce ptibl e to the oral agent s cefac nestor, cefdi dion, cefpo doxim e, cefpr ozil, cefur oxime , cepha lexin and lorac arbef . Not Available [facility] [address] [place], [address], 03/02/2025 16:26:09 02/01/20 25 01/19/2025 US, obste tric, 1st trime ster No observ ation record ed. [email or web address] [facility] ([facility]) [address] [place] [address], [phone], 01/31/2025 17:19:55 Result Notes None recorded. Problems Name Problem SNOMED Code Status Onset Date Resolution Date Notes Provider Name and Address Organization Details Recorded Time Otitis 70633624 Active 2021 OTITIS; 02/11/20 9:46AM by Kathy Hilliard, Office Visit; Promoted ; acuity set as *; OTITIS, RIGHT; 02/11/20 9:47AM by Kathy Hilliard, Office Visit; Promoted ; acuity set as *; KATHY celis [facility] 3 11:46:16 Anxiety 44820283 Active 2022 KATHY celis [facility] 3 11:46:16 Acne vulgaris 30127884 Active 2022 KATHY celis [facility] 3 11:46:16 Sprain of right knee 00311349805 723645 Active 2022 Herbert Warren MD [address] [place] [address], [phone], [facility] 3 16:24:18 Pregnanc y 24335735 Completed 202201/27/2024 [facility] 5 12:33:11 Gestatio n period, 11 weeks 40169998 Active 2023 Herbert Warren MD [address] [place] [address], [address]498 5, [facility] 4 10:51:57 Gestatio n period, 15 weeks 1616652 Active 2023 Herbert Warren MD [address] [place] [address], [phone] 5, [facility] 4 18:26:38 Gestatio n period, 19 weeks 79688558 Active 2023 Herbert Warren MD [address] [place] [address], [phone] 5, [facility] 4 10:52:28 Gestatio n period, 23 weeks 42132613 Active 2023 Herbert Warren MD [address] [place] [address], [phone] 5, [facility] 4 16:57:20 Gestatio n period, 27 weeks 49906863 Active 2023 Herbert Warren MD [address] [place] [address], [address]697 5, [facility] 4 16:22:57 Gestatio n period, 30 weeks 30617637 Active 2023 Herbert Warren MD [address] [place] [address], [address] 5, [facility] 4 08:36:42 Gestatio n period, 31 weeks 77574261 Active 2023 Herbert Warren MD [address] [place] [address], [address] 5, [facility] 4 16:35:11 Gestatio n period, 34 weeks 77224999 Active 2023 Herbert Warren MD [address] [place] [address], 39[address]-911 5, [facility] 4 17:19:46 Gestatio n period, 37 weeks 13939774 Active 2023 Herbert Warren MD [address] [place] [address], 38520-264 5, [facility] 4 16:41:10 Gestatio n period, 38 weeks 72400639 Active 2023 Herbert Warren MD [address] [place] [address], 24794-964 5, [facility] 4 14:05:05 Gestatio n period, 39 weeks 08612572 Active 2023 Herbert Warren MD [address] [place] [address], 10065-680 5, [facility] 4 08:28:39 Superfic ial thrombop hlebitis 3611180 Active 2023 Herbert Warren MD [address] [place] [address], 13692-060 5, [facility] 4 09:23:19 Mass of joint of right knee 22627310970 147760 Active 2023 Herbert Warren MD [address] [place] [phone] 5, [facility] 4 12:13:15 Pain of right knee region 39973515570 4105 Active 2023 Herbert Warren MD [address] [place] [address], 40[address]-227 5, [facility] 4 17:09:03 Contact dermatit is 92922851 Active 2024 Herbert Warren MD [address] [place] [address] 5, [facility] 5 13:12:04 Seasonal allergic rhinitis 141972760 Active 2024 Herbert Warren MD [address] [place] [address], [facility], RobertLRocCRoc 5 13:12:11 Pregnanc y 88156057 Active 2024 [facility] 5 12:33:11 Postural dizzines s 262318282 Active 2024 Herbert Warren MD [address] [place] [address], [address]-095 5, [facility] 5 17:49:13 Acute gastroen teritis 22913741 Active 2024 Herbert Warren MD [address] [place] [phone] 5, [facility] 5 17:49:26 Gestatio n period, 14 weeks 14011863 Active 2024 Herbert Warren MD [address] [place] [address] 5, [facility] 5 15:38:26 Problem Notes None recorded. Procedures Surgical History Date Name Laterality Status Provider Name and Address Organization Details Recorded Time Appendectomy completed Telma Rocael [facility] 06/15/2024 17:40:43 procedure on urinary bladder [facility] 06/15/2024 17:40:52 tonsilectomy/arpita oids completed KATHY HILLIARD [facility], LRocLBrice 11/05/2022 16:00:00 Imaging Results None recorded. Procedure Notes None recorded. Medical Equipment None Reported. Allergies Allergen ID Allergen Name Allergen Category Reaction Reaction Severity Criticality Documentation Date Start Date Code Code System Note Provider Name and Address Organization Details Recorded Time 5042 Product containin g penicilli n (product) medicatio n Not available Not available Not available 11/04/2022 51354 8001 SNOMED KATHY ARMINDA celis [facility], LRocLBrice 3 14:22:05 5043 amoxicill in medicatio n Not available Not available Not available 11/04/2022 723 RxNorm KATHY ARMINDA lalita [facility] 3 16:11:49 01754 codeine medicatio n rash Not available low 12/26/2022 2670 [facility] 3 16:12:05 Medications Name Sig Start Date Stop [...] e 50 mcg/actua tion nasal spray,georgette pension Lapel 1 spray every day by intranas al [...] Recorded Body height Body mass index (BMI) Body mass index (BMI) [Percentile] Per age and sex Body weight Provider Name and Address Organization Details Last Updated DateTime 03/14/2025 157.48 cm 37.1 kg/m2 97.81 % 38410.25 [facility] 03/14/2025 14:17:53 Social History Question Answer Notes LastModified by Organizat ion Details LastModified Time Tobacco Smoking Status Never Smoker Telma Cote [facility] 06/15/2024 17:40:23 What Is Your Level Of Caffeine Consumption? None [email or web address] Information not available 02/14/2025 Do You Or Have You Ever Used Marijuana? Never Used Information not available 02/14/2025 What Was The Date Of Your Most Recent Tobacco Screening? 03/14/2025 [email or web address] Information not available 03/14/2025 Sex: Unknown Functional Status Question Answer Note LastModified by Organizat ion Details LastModified Time Do you use any illicit or recreational drugs? No [email or web address] Information not available 02/14/2025 What is your level of alcohol consumption? None [email or web address] Information not available 02/14/2025 Mental Status None [...] Immunizations Vaccine Type Date Status Note Provider Cornell e and Address Organization Details Recorded Time HPV9 9 completed KATHY celis [facility] 04/10/2023 08:15:44 IPV 9 completed KATHY celis [facility] 04/10/2023 08:15:44 MMR 1 [facility] 04/10/2023 08:15:44 MMR 7 [facility] 04/10/2023 08:15:44 pneumococcal conjugate PCV 7 6 [facility] 04/10/2023 08:15:44 pneumococcal conjugate PCV 7 7 [facility] 04/10/2023 08:15:44 pneumococcal conjugate PCV 7 6 completed KATHY celis [facility] 04/10/2023 08:15:44 pneumococcal conjugate PCV 7 7 completed KATHY celis [facility] 04/10/2023 08:15:44 DTaP-IPV 1 completed KATHYSA ARMINDA celis [facility] 04/10/2023 08:15:44 Tdap 9 completed [facility] 04/10/2023 08:15:44 Pneumococcal conjugate PCV 13 1 completed KATHY celis, [facility] 04/10/2023 08:15:44 varicella 1 completed KATHY celis, [facility] 04/10/2023 08:15:44 varicella 7 completed KATHY celis, [facility] 04/10/2023 08:15:44 HPV, quadrivalent 9 completed KATHY celis, [facility] 04/10/2023 08:15:44 Hep B, adolescent or pediatric 6 completed KATHY celis, [facility] 04/10/2023 08:15:44 Hep A, ped/adol, 2 dose 8 completed KATHY celis, [facility] 04/10/2023 08:15:44 Hep A, ped/adol, 2 dose 9 completed KATHY celis, [facility] 04/10/2023 08:15:44 Hib (PRP-T) 6 completed KATHY celis [facility] 04/10/2023 08:15:44 Hib (PRP-T) 7 completed KATHY celis, [facility] 04/10/2023 08:15:44 Hib (PRP-T) 6 completed KATHY celis, [facility] 04/10/2023 08:15:44 Hib (PRP-T) 7 completed KATHY celis [facility] 04/10/2023 08:15:44 meningococcal MCV4P 9 completed KATHY celis [facility] 04/10/2023 08:15:44 DTaP 8 completed KATHY celis [facility] 04/10/2023 08:15:44 DTaP-Hep B-IPV 6 completed KATHY celis [facility] 04/10/2023 08:15:44 DTaP-Hep B-IPV 7 completed KATHY celis [facility] 04/10/2023 08:15:44 DTaP-Hep B-IPV 6 completed KATHY celis [facility] 04/10/2023 08:15:44 meningococcal conjugate quadrivalent, MenACWY-TT (MCV4) 3 completed Not Available [facility] 03/14/2025 14:14:40 Tdap 4 completed Not Available [facility] 03/14/2025 14:14:40 Hep B, adolescent or pediatric 8 completed KATHY celis [facility] 04/10/2023 08:15:44 Past Encounters Encounter ID Performer Location Encounter Start Date Encounter Closed Date Diagnosis/Indication Diagnosis SNOMED-CT Code Diagnosis ICD10 Code Diagnosis IMO Codes Diagnosis Note [id number] Herbert Warren MD [facility] ([facility]) [address] [place] [phone] 5 02/14/2025 09:24:08 02/14/2025 10:24:44 Normal 96249743 Z34.90 - Maintain regular follow-up. Due date September 12 with follow-up in a month for continued progress assessment . Allergic rhinitis 351032 04 J30.9 - Manage with continued use of Claritin or Zyrtec alongside Tylenol and nasal sprays. Adjust as needed based on symptom response. [id number] Herbert Warren MD [facility] ([facility]) [address] [place] [address] 03/14/2025 14:13:42 03/14/2025 14:43:25 Normal in multigravida 2044385079 13767 Z34.80 75363202 -anticipat ory guidance provided. No concerns Gestation period, 14 weeks 83159017 Z3A.14 3669690 Health Concerns Section Related Observation LastModified by Organization Detai ls LastModified Time None Recorded Concern Status LastModified by Organization Details LastModified Time None Recorded Payers Encounter Date Sequence Insurance Name Policy Number Policy Ro Covered Member ID Ro Member ID Guarantor Name 03/14/2025 1 [facility] (MEDICAID HMO) Lorenza Cerna [id number] Lorenza Cerna Notes Date Note Type Note Provider Name and Address Organization Details Recorded Time 5 text/html jr ob routineReported by PatientHPIFor associated symptoms, patient reportsfrequency,urgency, emesis, andbreathlessnessbut reportsno abdominal pain,no cramping,no contractions,normal movement,no bleeding,no rom,no vaginal discharge,no vaginal/vulvar itching or irritation,no dysuria,no hematuria,no fever,no nausea,no constipation,no diarrhea/loose stool,no edema,no visual changes,no headache,no dizziness,no decrease in urine volume, andno hyperreflexia. The patient is a 19-year-old female presenting with a routine office visit. No specific acute or chronic medical issues were discussed, and the patient reported feeling well without any concerning symptoms. All laboratory evaluations were noted to be normal. - Labs: All labs reported as pretty good with no specific abnormalities mentioned. Herbert Warren MD [address] [place] [address], [phone], [facility], Rodrigo 03/14/2025 15:42:34 OBGyn Episode Ob Episode Information Episode Created Date Number of Fetuses Patient Bloodtype Patient rh Status Prepregnancy Weight lbs Domestic Partner Domestic Partner Phone Father Name Supervisor Loading Status 01/04/20 25 1 A Positive [address] OPEN Fetus Data First Name Last [...] Latest Days Gestation 0 09/13/19 26 0 Pre- Flowsheet Flowsheet Date 01/03/2025 Tristan Score Blood Edema Fundus Height Fundus Units Glucose Ketones Leukocytes Nitrite Labor Signs Protein Cervic Dilation Cervic Effacement Cervic Station Type Weight in lbs Pre/Post Dialysis Refused Weight 205.011881072087 BP Diastolic BP Location Tested BP Systolic BP Type 74 122 Fetus Heart Rate Present Fetus Movement Comments Flowsheet Date 01/09/2025 Tristan Score Blood Edema Fundus Height Fundus Units Glucose Ketones Leukocytes Nitrite Labor Signs Protein Cervic Dilation Cervic Effacement Cervic Station Type Weight in lbs Pre/Post Dialysis Refused With clothes 206.974853941294 BP Diastolic BP Location Tested BP Systolic BP Type 90 L arm 142 sitting Fetus Heart Rate Present Fetus Movement Comments Flowsheet Date 01/16/2025 Tristan Score Blood Edema Fundus Height Fundus Units Glucose Ketones Leukocytes Nitrite Labor Signs Protein Cervic Dilation Cervic Effacement Cervic Station Type Weight in lbs Pre/Post Dialysis Refused Weight 203.407975852867 BP Diastolic BP Location Tested BP Systolic [...] in lbs Pre/Post Dialysis Refused With clothes 206.002368212332 BP Diastolic BP Location Tested BP Systolic BP Type 74 L arm 118 sitting Fetus Heart Rate Present Fetus Movement A No Comments Flowsheet Date 03/14/2025 Tristan Score Blood Edema Fundus Height Fundus Units Glucose Ketones Leukocytes Nitrite Labor Signs Protein Cervic Dilation Cervic Effacement Cervic Station none none Negative trace Type Weight in lbs Pre/Post Dialysis Refused Weight 203.935068774403 BP Diastolic BP Location Tested BP Systolic BP Type Fetus Heart Rate Present A 150 Fetus Movement Comments Menstrual History Last Menstrual Date Menses Monthly On Bcp Conception Prior Menses Frequency Hcg Plus Date Menarche Onset Age 0712/01/2024 Genetic Screening And Infection History Question Response Note Patient's Age Will Be 35 Years Or Older At Estim ated Date of Delivery false Thalassemia (Syriac, Mauritanian, Mediterranean, Or Background): MCV < 80 false Neural Tube Defect (Meningomyelocele, Spina Bifi da, Or Anencephaly) false Congenital Heart Defect false Down Syndrome false Zack-Sachs (eg, Bahai, Cajun, Danish-Papua [place]inean) f alse Laurent Disease false Sickle Cell Disease Or Trait () false Hemophilia Or Other Blood Disorders false Muscular Dystrophy false Cystic Fibrosis true Indialantic's Chorea false Intellectual Disability/Autism true If Yes, [...]
--- OUTSIDE RECORDS SUMMARY | 2025-04-11 23:45 | XMS_ITS | Continuity of Care Document ---
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 [email or web address] [facility] ([facility]) [address] [place], [address], 01/31/2025 17:19:55 Result Notes None recorded. Problems Name Problem SNOMED Code Status Onset Date Resolution Date Notes Provider Name and Address Organization Details Recorded Time Otitis 90634868 Active 2021 OTITIS; 02/11/20 9:46AM by Kathy Hilliard, Office Visit; Promoted ; acuity set as *; OTITIS, RIGHT; 02/11/20 9:47AM by Kathy Hilliard, Office Visit; Promoted ; acuity set as *; KATHY celis [facility] 3 11:46:16 Anxiety 04239402 Active 2022 KATHY celis [facility] 3 11:46:16 Acne vulgaris 98012033 Active 2022 KATHY celis [facility] 3 11:46:16 Sprain of right knee 87074613095 329253 Active 2022 Herbert Warren MD [address] [place] [address], [phone] 8, [facility] 16:24:18 Pregnanc y 66065577 Completed 202201/27/2024 Sandy celis [facility]. 5 12:33:11 Gestatio n period, 11 weeks 92845904 Active 2023 Herbert Warren MD [address] [place] [address], [phone] 5, [facility] 4 10:51:57 Gestatio n period, 15 weeks 9454090 Active 2023 Herbert Warren MD [address] [place] [address], [phone] 5, [facility] 4 18:26:38 Gestatio n period, 19 weeks 45958860 Active 2023 Herbert Warren MD [address] [place] [address], [phone] 5, [facility], RobertLRocC. 4 10:52:28 Gestatio n period, 23 weeks 04780127 Active 2023 Herbert Warren MD [address] [place] [address], [phone] 5, [facility] LR[facility]LRoc[facility]. 4 16:57:20 Gestatio n period, 27 weeks 81787604 Active 2023 Herbert Warren MD [address] [place] [address], [phone] 5, [facility] 4 16:22:57 Gestatio n period, 30 weeks 63778246 Active 2023 Herbert Warren MD [address] [place] [address], [phone] 5, [facility] LRocLR[facility] 4 08:36:42 Gestatio n period, 31 weeks 50765871 Active 2023 Herbert Warren MD [address] [place] [address], [phone] 5, [facility] LRocL[facility] 4 16:35:11 Gestatio n period, 34 weeks 50957609 Active 2023 Herbert Warren MD [address] [place] [address], 50[address]-561 5, [facility] 4 17:19:46 Gestatio n period, 37 weeks 31598250 Active 2023 Herbert Warren MD [address] [place] [address], [phone] 5, [facility] 4 16:41:10 Gestatio n period, 38 weeks 51697722 Active 2023 Herbert Warren MD [address] [place] [address], 28[address]-093 5, [facility] LRocLRoc[facility]. 4 14:05:05 Gestatio n period, 39 weeks 27629973 Active 2023 Herbert Warren MD [address] [place] [address], [phone] 5, [facility] 4 08:28:39 Superfic ial thrombop hlebitis 7276582 Active 2023 Herbert Warren MD [address] [place] [address], [phone] 5, [facility] 4 09:23:19 Mass of joint of right knee 74597615816 591120 Active 2023 Herbert Warren MD [address] [place] [address], 84751-804 5, [facility] 4 12:13:15 Pain of right knee region 78855058747 4105 Active 2023 Herbert Warren MD [address] [place] [address] [phone] 5, [facility] 4 17:09:03 Contact dermatit is 55125756 Active 2024 Herbert Warren MD [address] [place] [address] [phone] 5, [facility] 5 13:12:04 Seasonal allergic rhinitis 281606836 Active 2024 Herbert Warren MD [address] [place] [address], 62097-107 5, [facility] 5 13:12:11 Pregnanc y 28039769 Active 2024 [facility] 12:33:11 Postural dizzines s 048073223 Active 2024 Herbert Warren MD [address] [place] [address] 5, [facility] 5 17:49:13 Acute gastroen teritis 92556865 Active 2024 Herbert Warren MD [address] [place] [address] 5, [facility] 17:49:26 Gestatio n period, 14 weeks 72766772 Active 2024 Herbert Warren MD [address] [place] [address] [phone] 5, [facility] 15:38:26 Problem Notes None recorded. Procedures Surgical History Date Name Laterality Status Provider Name and Address Organization Details Recorded Time Appendectomy completed Telma Cote [facility] RobertL[facility]CR[facility] 06/15/2024 17:40:43 procedure on urinary bladder completed Telma Cote [facility], Rodrigo 06/15/2024 17:40:52 tonsilectomy/arpita oids completed KATHY ARMINDA [facility] 11/05/2022 16:00:00 Imaging Results None recorded. Procedure Notes None recorded. Medical Equipment None Reported. Allergies Allergen ID Allergen Name Allergen Category Reaction Reaction Severity Criticality Documentation Date Start Date Code Code System Note Provider Name and Address Organization Details Recorded Time 5042 Product containin g penicilli n (product) medicatio n Not available Not available Not available 11/04/2022 11505 8001 SNOMED KATHY HILLIARD lalita [facility] 14:22:05 5043 amoxicill in medicatio n Not available Not available Not available 11/04/2022 723 RxNorm KATHY DAWNG lalita [facility] 16:11:49 90155 codeine medicatio n rash Not available low 12/26/2022 2670 RxNorm KATHY ARMINDAJohn celis [facility] 16:12:05 Medications Name Sig Start Date [...] e 50 mcg/actua tion nasal spray,georgette pension [place] 1 spray every day by intranas al [...] Not Available Not Available Not Available Vitals None Recorded Social History Question Answer Notes LastModified by Organizat [employer] Details LastModified Time Tobacco Smoking Status Never Smoker Telma Cote lalita [facility] 06/15/2024 17:40:23 What Is Your Level Of Caffeine Consumption? None [email or web address] Information not available 02/14/2025 Do You Or Have You Ever Used Marijuana? Never Used [email or web address] Information not available 02/14/2025 What Was The Date Of Your Most Recent Tobacco Screening? 03/14/2025 [email or web address] Information not available 03/14/2025 Sex: Unknown Functional Status Question Answer Note LastModified by Organizat ion Details LastModified Time Do you use any illicit or recreational drugs? No [email or web address] Information not available 02/14/2025 What is your level of alcohol consumption? None [email or web address] Information not available 02/14/2025 Mental Status None [...] Vaccine Type Date Status Note Provider [employer] and Address Organization Details Recorded Time HPV9 9 completed KATHY celis [facility] 04/10/2023 08:15:44 IPV 9 completed KATHY celis [facility] 04/10/2023 08:15:44 MMR 1 completed KATHY celis, [facility] 04/10/2023 08:15:44 MMR 7 completed KATHY HILLIARD null, [facility] 04/10/2023 08:15:44 pneumococcal conjugate PCV 7 6 completed KATHY HILLIARD null, [facility] 04/10/2023 08:15:44 pneumococcal conjugate PCV 7 7 completed KATHY DAWNG null, [facility] 04/10/2023 08:15:44 pneumococcal conjugate PCV 7 6 completed KATHY HILLIARD null, [facility] 04/10/2023 08:15:44 pneumococcal conjugate PCV 7 7 completed KATHY HILLIARD null, [facility] 04/10/2023 08:15:44 DTaP-IPV 1 completed KATHY celis, [facility] 04/10/2023 08:15:44 Tdap 9 completed KATHY celis, [facility] 04/10/2023 08:15:44 Pneumococcal conjugate PCV 13 1 completed KATHY celis, [facility] 04/10/2023 08:15:44 varicella 1 completed KATHY HILLIARD null, [facility] 04/10/2023 08:15:44 varicella 7 completed KATHY celis, [facility] 04/10/2023 08:15:44 HPV, quadrivalent 9 completed KATHY celis, [facility] 04/10/2023 08:15:44 Hep B, adolescent or pediatric 6 completed KATHY ARMINDA null, [facility] 04/10/2023 08:15:44 Hep A, ped/adol, 2 dose 8 completed KATHY ARMINDA null, [facility] 04/10/2023 08:15:44 Hep A, ped/adol, 2 dose 9 completed KATHY ARMINDA null, [facility] 04/10/2023 08:15:44 Hib (PRP-T) 6 completed KATHY ARMINDA null, [facility] 04/10/2023 08:15:44 Hib (PRP-T) 7 completed KATHY DAWNG null, [facility] 04/10/2023 08:15:44 Hib (PRP-T) 6 completed KATHY ARMINDA null, [facility] 04/10/2023 08:15:44 Hib (PRP-T) 7 completed KATHY DAWNG null, [facility] 04/10/2023 08:15:44 meningococcal MCV4P 9 completed KATHY DAWNG null, [facility] 04/10/2023 08:15:44 DTaP 8 completed KATHY ARMINDA null, [facility] 04/10/2023 08:15:44 DTaP-Hep B-IPV 6 completed KATHY ARMINDA null, [facility] 04/10/2023 08:15:44 DTaP-Hep B-IPV 7 completed KATHY ARMINDA null, [facility] 04/10/2023 08:15:44 DTaP-Hep B-IPV 6 completed KATHY ARMINDAJohn celis [facility] 04/10/2023 08:15:44 meningococcal conjugate quadrivalent, MenACWY-TT (MCV4) 3 completed Not Available [facility] 03/14/2025 14:14:40 Tdap 4 completed Not Available [facility] 03/14/2025 14:14:40 Hep B, adolescent or pediatric 8 completed KATHY ARMINDA celis [facility] 04/10/2023 08:15:44 Past Encounters Encounter ID Performer Location Encounter Start Date Encounter Closed Date Diagnosis/Indication Diagnosis SNOMED-CT Code Diagnosis ICD10 Code Diagnosis IMO Codes Diagnosis Note [id number] Herbert Warren MD [facility] ([facility]) [address] [place] [address] 75612-728 5 01/03/2025 12:29:45 01/03/2025 13:06:54 Normal in multigravida [id number] 04121 Z34.80 [id number] Schedule the patient for for semester ultrasound . Will start her on prenatals. We will hold off on lab work at this time. No significan t concerns. Guidance provided on new . [id number] Herbert Warren MD [facility] ([facility]) [address] [place] [phone] 5 01/09/2025 15:53:07 01/09/2025 16:26:52 Postural dizziness 581970572 R42 53694433 The patient to push fluids. Will provide a note for work to minimize bending kneeling and stooping. No lifting greater than 10 pounds at this time. Acute gastroenteritis 69 399105 K52.9 8743 Patient has mild gastroente ritis and this will likely resolve without further interventi on. Push fluids as above. [id number] PEPITO BERNSTEIN [facility] ([facility]) [address] [place] [address] [phone] 5 01/16/2025 13:50:58 01/16/2025 15:50:09 Blood pressure above reference range 22998197 R03.0 695115 BP reading normal here in clinic. Reassuranc e provided. Continue monitoring bp BID and call OB with results. [id number] Herbert Warren MD [facility] ([facility]) [address] [place] [address] 01/18/2025 12:49:26 01/23/2025 16:04:13 Health Concerns Section Related Observation LastModified by Organization Detai ls LastModified Time None Recorded Concern Status LastModified by Organization Details LastModified Time None Recorded Payers Encounter Date Sequence Insurance Name Policy Number Policy Ro Covered Member ID Ro Member ID Guarantor Name 01/18/2025 1 [facility] (MEDICAID HMO) Lorenza Cerna [id number] Lorenza Cerna OBGyn Episode Ob Episode Information Episode Created Date Number of Fetuses Patient Bloodtype Patient rh Status Prepregnancy Weight lbs Domestic Partner Domestic Partner Phone Father Name Cnc Machinist Status 01/04/20 25 1 A Positive [address] [place] OPEN Fetus Data First Name Last [...] Weight in lbs Pre/Post Dialysis Refused Weight 205.779327674216 BP Diastolic BP Location Tested BP Systolic BP Type 74 122 Fetus Heart Rate Present Fetus Movement Comments Flowsheet Date 01/09/2025 Tristan Score Blood Edema Fundus Height Fundus Units Glucose Ketones Leukocytes Nitrite Labor Signs Protein Cervic Dilation Cervic Effacement Cervic Station Type Weight in lbs Pre/Post Dialysis Refused With clothes 206.884626284204 BP Diastolic BP Location Tested BP Systolic BP Type 90 L arm 142 sitting Fetus Heart Rate Present Fetus Movement Comments Flowsheet Date 01/16/2025 Tristan Score Blood Edema Fundus Height Fundus Units Glucose Ketones Leukocytes Nitrite Labor Signs Protein Cervic Dilation Cervic Effacement Cervic Station Type Weight in lbs Pre/Post Dialysis Refused Weight 203.575955417692 BP Diastolic BP Location Tested BP Systolic [...] in lbs Pre/Post Dialysis Refused With clothes 206.356230298423 BP Diastolic BP Location Tested BP Systolic BP Type 74 L arm 118 sitting Fetus Heart Rate Present Fetus Movement A No Comments Flowsheet Date 03/14/2025 Tristan Score Blood Edema Fundus Height Fundus Units Glucose Ketones Leukocytes Nitrite Labor Signs Protein Cervic Dilation Cervic Effacement Cervic Station none none Negative trace Type Weight in lbs Pre/Post Dialysis Refused Weight 203.923322098813 BP Diastolic BP Location Tested BP Systolic BP Type Fetus Heart Rate Present A 150 Fetus Movement Comments Menstrual History Last Menstrual Date Menses Monthly On Bcp Conception Prior Menses Frequency Hcg Plus Date Menarche Onset Age 0712/01/2024 Genetic Screening And Infection History Question Response Note Patient's Age Will Be 35 Years Or Older At Estim ated Date of Delivery false Thalassemia (Central African, Czech, Mediterranean, Or Background): MCV < 80 false Neural Tube Defect (Meningomyelocele, Spina Bifi da, Or Anencephaly) false Congenital Heart Defect false Down Syndrome false Zack-Sachs (eg, Methodist, Cajun, Cameroonian-Kinney) f alse Laurent Disease false Sickle Cell Disease Or Trait () false Hemophilia Or Other Blood Disorders false Muscular Dystrophy false Cystic Fibrosis true Saltese's Chorea false Intellectual Disability/Autism true If Yes, [...]
--- OUTSIDE RECORDS SUMMARY | 2025-04-11 23:45 | XMS_ITS | Data Portability ---
Author Organization [facility] Address [address] [address] Care Team Providers Care Mechanical Product Engineer Name Role Phone HERBERT WARREN Primary Care Provider [phone] Assessment Encounter Date Assessment Date Assessment LastModified by Organization Details LastModified Time 02/14/2025 02/14/2025 19-year-old female with a history of normal presenting with a dry, persistent cough. Allergic rhinitis is suspected due to chronic throat drainage and ineffective response to standard antihistamines . Her current is ten weeks and progressing as expected. [id number] Not available 02/14/2025 10:02:57 03/14/2025 03/14/2025 19-year-old female with no significant [...] Not available Not available Not available Lab RPR (rapid plasma reagin) , serum 2024 [facility], [address] [place] [address], [address], [place], [address], 03/02/2025 16:26:07 CBC w/ auto diff 2024 [employer], [address] [place] [address] 248, [address], [place], [address], 03/02/2025 16:26:05 hepatit is C virus Ab, serum 2024 025 [employer] [facility], [address] [place] [address], [address], [place], [address], 03/02/2025 16:26:05 HIV 1+2 Ab + HIV1 p24 Ag, quantit ative immunoa ssay, serum 2024 025 [employer] [facility], [address] [place] [address], [address], [place], [address], 03/02/2025 16:26:04 antibod y screen, serum or plasma 2024 025 [employer] [facility], [address] [place] [address], [address], [place], [address], 03/02/2025 16:26:08 abo group + rh type, blood [address] [facility], [address] [place] [address], [address], [place], [address], 03/02/2025 16:26:08 HBsAg (hepati tis B surface Ag), serum [address] [facility], [address] [place] [address], [address], [place], [address], 03/02/2025 16:26:05 rubella igg Ab screen, serum [facility]24 [facility] [address] [place] [address], [address], [place], [address], 03/02/2025 16:26:06 urinaly sis, complet e 2024 [facility], [address] [place] [address], [address], [place], [address], 03/02/2025 16:26:04 culture , urine [address] [facility], [address] [place] [address], [address], [place], [address], 03/02/2025 16:26:09 drug screen, urine 2024 [facility], [address] [place] [address], [address], [place], [address], 03/02/2025 16:26:08 CT + NG RNA, PCR, unspeci fied specime n 2024 [facility], [address] [place] [address], [address], [place], [address], 03/02/2025 16:26:07 unliste d lab - qnatal( R) advance d 2024 [place] [facility], [address] [facility] [address], [address] [place], [address], 03/02/2025 16:26:06 Referral None recorde d. Procedures None recorde d. Surgeries None recorde d. Imaging None recorde d. Medication Orders flutica sone propion ate 50 mcg/act uation nasal spray,s uspensi on 2024 [place] [facility], [address], [place], [address], 03/14/2025 14:22:36 Patient TargetsNo targets recorded. Patient Instructions Encounter Date Encounter Id Patient Instructions Last Modified By Organization Details Last Modified Time 02/14/2025 [id number] - Continue takin g Claritin or Zyrtec daily. - Use nasal spray as needed for drainage. - Take Tylenol as directed for relief of throat discomfort. - Monitor symptoms and contact us if the cough worsens or is not improving. - Attend the next visit in one month. - Reach out immediately with any concerns about the or other health issues. [id number] Not available 02/14/2025 10:03:00 I discussed with the patient the likely diagnosis of allergic rhinitis given her symptoms and history. We reviewed the management plan, including the continuation of antihistamines like Claritin or Zyrtec, along with additional therapies such as Tylenol and nasal sprays to manage drainage and cough. I emphasized monitoring her response and reaching out if symptoms persist or worsen. We also covered ongoing care and the reassurance that her is progressing normally. Follow-up has been scheduled in a month to reassess her status and cough. [id number] Not available 02/14/2025 10:03:00 03/14/2025 [id number] - Maintain [facility] health practices and routines. - Continue to monitor for any new symptoms and report them if they arise. - Attend the next scheduled follow-up appointment in one month. [id number] Not available 03/14/2025 14:41:24 I discussed with [...] nce of HIV infec tion. Not Available [address], [address], 03/02/2025 16:26:04 02/24/20 25 03/02/2025 HIV 1/2 ANTIG EN/AN TIBOD Y,FOU RTH GENER ATION W/RFL HIV Ag/Ab, screen NON-RE ACTIVE non-re active normal Not Available [address], [address], 03/02/2025 16:26:04 02/24/2003/02/2025 URINA LYSIS , COMPL ETE color YELLOW yellow normal Not Available [address], [address], 03/02/2025 16:26:04 02/24/2003/02/2025 URINA LYSIS , COMPL ETE appearance CLEAR clear normal Not Available [address], [address], 03/02/2025 16:26:04 02/24/20 25 03/02/2025 URINA LYSIS , COMPL ETE specific gravity 1.024 1.001- 1.035 normal Not Available [address] [place], [address], 03/02/2025 16:26:04 02/24/2003/02/2025 URINA LYSIS , COMPL ETE pH 6.5 5.0-8. 0 normal Not Available [facility] [address], [address], 03/02/2025 16:26:04 02/24/2003/02/2025 URINA LYSIS , COMPL ETE glucose NEGATI VE negati ve normal Not Available [facility] [address], [address], 03/02/2025 16:26:04 02/24/2003/02/2025 URINA LYSIS , COMPL ETE bilirubin NEGATI VE negati ve normal Not Available [facility] [address], [address], 03/02/2025 16:26:04 02/24/2003/02/2025 URINA LYSIS , COMPL ETE ketones NEGATI VE negati ve normal Not Available [facility] [address], [address], 03/02/2025 16:26:04 02/24/2003/02/2025 URINA LYSIS , COMPL ETE occult blood NEGATI VE negati ve normal Not Available [facility] [address], [address], 03/02/2025 16:26:04 02/24/2003/02/2025 URINA LYSIS , COMPL ETE protein TRACE negati ve abnormal Not Available [facility] [address], [address], 03/02/2025 16:26:04 02/24/2003/02/2025 URINA LYSIS , COMPL ETE nitrite NEGATI VE negati ve normal Not Available [facility] [address], [address], 03/02/2025 16:26:04 02/24/2003/02/2025 URINA LYSIS , COMPL ETE leukocyte esterase NEGATI VE negati ve normal Not Available [address], [address], 03/02/2025 16:26:04 02/24/2003/02/2025 URINA LYSIS , COMPL ETE WBC 0-5 /hpf < or = 5 normal Not Available [address], [address], 03/02/2025 16:26:04 02/24/2003/02/2025 URINA LYSIS , COMPL ETE RBC NONE SEEN /hpf < or = 2 normal Not Available [address], [address], 03/02/2025 16:26:04 02/24/20 25 03/02/2025 URINA LYSIS , COMPL ETE squamous epithelial cells 10-20 /hpf < or = 5 abnormal Not Available [address], [address], 03/02/2025 16:26:04 02/24/2003/02/2025 URINA LYSIS , COMPL ETE bacteria FEW /hpf none seen abnormal Not Available [address], [address], 03/02/2025 16:26:04 02/24/2003/02/2025 URINA LYSIS , COMPL ETE hyaline cast NONE SEEN /lpf none seen normal Not Available [address], [address], 03/02/2025 16:26:04 02/24/2003/02/2025 URINA LYSIS , COMPL ETE note This urine was judith zed for the prese nce of WBC, RBC, bacte guerita, casts , and other forme d eleme nts. Only those eleme nts seen were repor joao. Not Available [address], [address], 03/02/2025 16:26:04 02/24/20 25 03/02/2025 CBC (INCL UDES DIFF/ PLT) white blood cell count 10.8 thous and/u L 3.8-10 .8 normal Not Available [facility] [address], [address], 03/02/2025 16:26:05 02/24/20 25 03/02/2025 CBC (INCL UDES DIFF/ PLT) red blood cell count 4.58 sweta on/uL 3.80-5 .10 normal Not Available [address], [address], 03/02/2025 16:26:05 02/24/20 25 03/02/2025 CBC (INCL UDES DIFF/ PLT) hemoglobin 13.1 g/dL 11.7-1 5.5 normal Not Available [address], [address], 03/02/2025 16:26:05 02/24/20 25 03/02/2025 CBC (INCL UDES DIFF/ PLT) hematocrit 41.4 % 35.0-4 5.0 normal Not Available [address], [address], 03/02/2025 16:26:05 02/24/20 25 03/02/2025 CBC (INCL UDES DIFF/ PLT) MCV 90.4 fL 80.0-1 00.0 normal Not Available [facility] [address], [address], 03/02/2025 16:26:05 02/24/20 25 03/02/2025 CBC (INCL UDES DIFF/ PLT) MCH 28.6 pg 27.0-3 3.0 normal Not Available [facility] [address], [address], 03/02/2025 16:26:05 02/24/20 25 03/02/2025 CBC (INCL UDES DIFF/ PLT) MCHC 31.6 g/dL 32.0-3 6.0 low For adult s, a sligh t decre ase in the calcu lated MCHC value (in the range of 30 to 32 g/dL) is most likel y not clini skyler signi ficbhupinder t; wagner er, it shoul d be inter prete d with cauti on in [facility] n with other red cell padmini eters and the patie nt's clini basil condi tion. Not Available [facility] [address], [address], 03/02/2025 16:26:05 02/24/20 25 03/02/2025 CBC (INCL UDES DIFF/ PLT) RDW 13.8 % 11.0-1 5.0 normal Not Available [address], [address], 03/02/2025 16:26:05 02/24/2003/02/2025 CBC (INCL UDES DIFF/ PLT) platelet count 269 thous and/u L 140-40 0 normal Not Available [address], [address], 03/02/2025 16:26:05 02/24/20 25 03/02/2025 CBC (INCL UDES DIFF/ PLT) MPV 9.7 fL 7.5-12 .5 normal Not Available [facility] [address], [address], 03/02/2025 16:26:05 02/24/20 25 03/02/2025 CBC (INCL UDES DIFF/ PLT) absolute neutrophils 7668 cells /uL 1500-7 800 normal Not Available [facility] [address], [address], 03/02/2025 16:26:05 02/24/20 25 03/02/2025 CBC (INCL UDES DIFF/ PLT) absolute lymphocytes 2527 cells /uL 850-39 00 normal Not Available [address], [address], 03/02/2025 16:26:05 02/24/20 25 03/02/2025 CBC (INCL UDES DIFF/ PLT) absolute monocytes 454 cells /uL 200-95 0 normal Not Available [address] [place], [address], 03/02/2025 16:26:05 02/24/2003/02/2025 CBC (INCL UDES DIFF/ PLT) absolute eosinophils 97 cells /uL 15-500 normal Not Available [address], [address], 03/02/2025 16:26:05 02/24/2003/02/2025 CBC (INCL UDES DIFF/ PLT) absolute basophils 54 cells /uL 0-200 normal Not Available [address], [address], 03/02/2025 16:26:05 02/24/20 25 03/02/2025 CBC (INCL UDES DIFF/ PLT) neutrophils 71 % normal Not Available [address], [address], 03/02/2025 16:26:05 02/24/2003/02/2025 CBC (INCL UDES DIFF/ PLT) lymphocytes 23.4 % normal Not Available [address], [address], 03/02/2025 16:26:05 02/24/20 25 03/02/2025 CBC (INCL UDES DIFF/ PLT) monocytes 4.2 % normal Not Available [address], [address], 03/02/2025 16:26:05 02/24/20 25 03/02/2025 CBC (INCL UDES DIFF/ PLT) eosinophils 0.9 % normal Not Available [address], [address], 03/02/2025 16:26:05 02/24/20 25 03/02/2025 CBC (INCL UDES DIFF/ PLT) basophils 0.5 % normal Not Available [address], [address], 03/02/2025 16:26:05 02/24/20 25 03/02/2025 HEPAT ITIS B SURFA CE ANTIG EN W/REF L CONFI RM hepatitis B surface antigen NON-RE ACTIVE non-re active normal For addit ional infor bossman mchugh, terese e refer to http: //[facility]ia gnost ics.c om/fa q/FAQ 202 (This link is being provi ded for infor matio nal/ educa yosef l purpo ses only. ) Not Available [address], [address], 03/02/2025 16:26:05 02/24/2003/02/2025 HEPAT ITIS C AB [...] a test for HCV RNA (test code 27070 ) is sugge sted. For addit ional infor matparul n pleas e refer to http: //[facility] gnost ics.c om/fa q/FAQ 22v1 (This link is being provi ded for infor matio nal/ educa yosef l purpo ses only. ) Not Available [address], [address], 03/02/2025 16:26:05 02/24/20 25 03/02/2025 RUBEL LA AB (IGG) , IMMUN E [...] with rubel la virus . Not Available [address], [address], 03/02/2025 16:26:06 02/24/2003/02/2025 QNATA L(R) ADVAN CARLITOS number of fetuses? 1 Not Available [address], [address], 03/02/2025 16:26:06 02/24/2003/02/2025 QNATA L(R) ADVAN CARLITOS advanced maternal age? NOT GIVEN Not Available [address], [address], 03/02/2025 16:26:06 02/24/2003/02/2025 QNATA L(R) ADVAN CARLITOS abnormal sena? NOT GIVEN Not Available [address], [address], 03/02/2025 16:26:06 02/24/2003/02/2025 QNATA L(R) ADVAN CARLITOS abnormal US? NOT GIVEN Not Available [address], [address], 03/02/2025 16:26:06 02/24/20 25 03/02/2025 QNATA L(R) ADVAN CARLITOS personal/fam history? NOT GIVEN Not Available [address] [address] [place], [address], 03/02/2025 16:26:06 02/24/20 25 03/02/2025 QNATA L(R) ADVAN CARLITOS interpretati on SEE NOTE This speci men showe d an expec joao repre senta tion of chrom osome 21, 18, and 13 mater ial. See Tommy victor below . Not Available [address], [address], 03/02/2025 16:26:06 02/24/20 25 03/02/2025 QNATA L(R) ADVAN CARLITOS trisomy 21 (T21) NEGATI VE Not Available [address], [address], 03/02/2025 16:26:06 02/24/20 25 03/02/2025 QNATA L(R) ADVAN CARLITOS trisomy 18 (T18) NEGATI VE Not Available [address], [address], 03/02/2025 16:26:06 02/24/20 25 03/02/2025 QNATA L(R) ADVAN CARLITOS trisomy 13 (T13) NEGATI VE Not Available [address] [place], [address], 03/02/2025 16:26:06 02/24/20 25 03/02/2025 QNATA L(R) ADVAN CARLITOS Y chromosome DETECT ED Not Available [address], [address], 03/02/2025 16:26:06 02/24/20 25 03/02/2025 QNATA L(R) ADVAN CARLITOS Y chr. interpretati on SEE NOTE Consi stent with a male fetus . Not Available [address] [place], [address], 03/02/2025 16:26:06 02/24/2003/02/2025 QNATA L(R) ADVAN CARLITOS sex chromosome NO ANEUPL OIDY Not Available [address] [facility] [place], [address], 03/02/2025 16:26:06 02/24/2003/02/2025 QNATA L(R) ADVAN CARLITOS sex chromosome interp SEE NOTE No appar ent abnor malit y was detec joao. See Limi tatio ns below . Not Available [facility] [address], [address], 03/02/2025 16:26:06 02/24/20 25 03/02/2025 QNATA L(R) ADVAN CARLITOS microdeletio n NOT DETECT ED Not Available [address], [address], 03/02/2025 16:26:06 02/24/2003/02/2025 QNATA L(R) ADVAN CARLITOS microdeletio n interp SEE NOTE No appar ent abnor malit y was detec joao. See Limi tatio ns below . Not Available [address], [place], [address], 03/02/2025 16:26:06 02/24/20 25 03/02/2025 QNATA L(R) ADVAN CARLITOS gestational age(in weeks) 11 Not Available [address] [place], [address], 03/02/2025 16:26:06 02/24/20 25 03/02/2025 QNATA L(R) ADVAN CARLITOS gestational age (in days) 2 Not Available [facility] [address] [place], [address], 03/02/2025 16:26:06 02/24/20 25 03/02/2025 QNATA L(R) ADVAN CARLITOS fraction 10.10% Not Available [facility] [address] [place], [address], 03/02/2025 16:26:06 02/24/20 25 03/02/2025 QNATA L(R) ADVAN CARLITOS laboratory comments SEE NOTE A porti on of the testi ng was perfo rmed at [facility] . Labor atory resul ts and submi tted clini basil infor matio n revie wed by Denice Ibarra, PhD, FAC , [facility]. Not Available [facility] [address] [address], [place], [address], 03/02/2025 16:26:06 02/24/2003/02/2025 QNATA L(R) ADVAN CARLITOS [...] not valid and shoul d be disre gardmars d. Micro delet ion scree jony is limit [...] place ntal in origi n. Not Available [facility] [employer] [facility] [address] [place], [address], 03/02/2025 16:26:06 02/24/20 25 03/02/2025 QNATA L(R) [...] judith tical asses sment . Not Available [facility] [address] [place], [address], 03/02/2025 16:26:06 02/24/20 25 03/02/2025 QNATA L(R) ADVAN CARLITOS methodology SEE NOTE [...] micro delet ion syndr ome (1p36 ), Afia Lucas hhorn syndr ome (4p), Cri-d u-andrés t syndr ome (5p), Lucinda rLinnette naya syndr ome (8q), Vishal sen syndr [...] been revie wed by FDA. Not Available [facility] [address] [address], [place], [address], 03/02/2025 16:26:06 02/24/2003/02/2025 [facility] REQU RED INFO comment We are unabl e to compl ete the test( s) noted below due to [facility] requ red infor bossman mchugh. Not Available [facility] [address] [address], [place], [address], 03/02/2025 16:26:07 02/24/2003/02/2025 TEST IN [facility] REQU RED INFO missing info: [id number] -QNAT CHAR(R) ADVAN CARLITOS Estim ated Date of Deliv nishant: Zane burgess of Fetus es: Pleas e conta ct [facility] to verif y the above mater nal infor bossman mchugh for this patie nt. Not Available [facility] [address] [address], [place], [address], 03/02/2025 16:26:07 02/24/2003/02/2025 TEST IN [facility] REQU RED INFO contact: * Not Available [facility] [employer] [address], [address], 03/02/2025 16:26:07 02/24/2003/02/2025 TEST IN [facility] REQUI RED INFO comment To preve nt furth er delay s in testi ng, pleas e compl ete infor matparul n above and fax to [phone] to resol ve this order . Autho rized Signa ture: __ Not Available [address], [address], 03/02/2025 16:26:07 02/24/20 25 03/02/2025 CHLAM YDIA/ N. GONOR RHOEA E RNA, TMA, UROGE NITAL chlamydia trachomatis RNA, tma, urogenital NOT DETECT ED not detect ed normal Not Available [facility] [employer] [address], [address], 03/02/2025 16:26:07 02/24/2003/02/2025 CHLAM YDIA/ N. GONOR RHOEA E RNA, TMA, UROGE NITAL neisseria gonorrhoeae RNA, tma, urogenital NOT DETECT ED not detect ed normal Not Available [facility] [address], [address], 03/02/2025 16:26:07 02/24/2003/02/2025 CHLAM YDIA/ N. GONOR RHOEA E RNA, TMA, UROGE NITAL comment The judith tical perfo rmanc e yoselin cteri stics of this assay , when used to test SureP ath(T M) speci mens have been deter mined by [facility]. The modif icati ons have not been clear ed or appro sonam by the FDA. This assay has been valid ated pursu ant to the CLIA regul ation s and is used for clini basil purpo ses. For addit ional infor bossman mchugh, pleas e refer to https ://ed ucati on.qu jyoti tryosef M:Metrics. com/f aq/FA Q154 (This link is being provi ded for infor bossman mchugh/ educa yosef l purpo ses only. ) Not Available [facility] [address] [place], [address], 03/02/2025 16:26:07 02/24/2003/02/2025 RPR (DX) W/REF L TITER AND T. PALLI DUM AB, IA RPR (DX) w/refl titer and confirmatory testing NON-RE ACTIVE non-re active normal No labor atory evide nce of syphi lis. If recen t expos ure is suspe cted, submi t a new sampl e in 2-4 weeks . Not Available [facility] [address], [address], 03/02/2025 16:26:07 02/24/20 25 03/02/2025 ANTIB AFSHIN [...] alloi mmuni zed pregn nolan. Not Available [facility] [address] [address] [place], [address], 03/02/2025 16:26:08 02/24/2003/02/2025 ABO GROUP AND RH TYPE ABO group A Not Available [facility] [address], [address], 03/02/2025 16:26:08 02/24/20 25 03/02/2025 ABO GROUP AND RH TYPE Rh type RH(D) POSITI VE For addit ional infor matio n, pleas e refer to http: //[facility].c om/fa q/FAQ 111 (This link is being provi ded for infor bossman bell/ mayito barrow purpo ses only. ) Not Available [facility] [address] [address] [address], [place], [address], 03/02/2025 16:26:08 02/24/2003/02/2025 DRUG MONIT OR, PANEL 1, SCREE N, URINE amphetamines NEGATI VE NG/mL <500 See Note A See Note A Not Available [facility] [address], [place], [address], 03/02/2025 16:26:08 02/24/2003/02/2025 DRUG MONIT OR, PANEL 1, SCREE N, URINE barbiturates NEGATI VE NG/mL <300 See Note A See Note A Not Available [facility] [address] [address], [place], [address], 03/02/2025 16:26:08 02/24/2003/02/2025 DRUG MONIT OR, PANEL 1, SCREE N, URINE benzodiazepi dorothea NEGATI VE NG/mL <100 See Note A See Note A Not Available [facility] [address] [address] [address], [place], [address], 03/02/2025 16:26:08 02/24/2003/02/2025 DRUG MONIT OR, PANEL 1, SCREE N, URINE cocaine metabolite NEGATI VE NG/mL <150 See Note A See Note A Not Available [facility] [address] [address], [place], [address], 03/02/2025 16:26:08 02/24/2003/02/2025 DRUG MONIT OR, PANEL 1, SCREE N, URINE marijuana metabolite NEGATI VE NG/mL <20 See Note A See Note A Not Available [facility] [address] [address] [address], [place], [address], 03/02/2025 16:26:08 02/24/2003/02/2025 DRUG MONIT OR, PANEL 1, SCREE N, URINE methadone metabolite NEGATI VE NG/mL <100 See Note A See Note A Not Available [address] [address] [address], [place], [address], 03/02/2025 16:26:08 02/24/2003/02/2025 DRUG MONIT OR, PANEL 1, SCREE N, URINE opiates NEGATI VE NG/mL <100 See Note A See Note A Not Available [address] [address], [place], [address], 03/02/2025 16:26:08 02/24/2003/02/2025 DRUG MONIT OR, PANEL 1, SCREE N, URINE oxycodone NEGATI VE NG/mL <100 See Note A See Note A Not Available [address] [address], [place], [address], 03/02/2025 16:26:08 02/24/2003/02/2025 DRUG MONIT OR, PANEL 1, SCREE N, URINE phencyclidin e NEGATI VE NG/mL <25 See Note A See Note A Not Available [address] [address], [place], [address], 03/02/2025 16:26:08 02/24/2003/02/2025 DRUG MONIT OR, PANEL 1, SCREE N, URINE creatinine 236.6 mg/dL > or = 20.0 Not Available [address] [address] [address], [place], [address], 03/02/2025 16:26:08 02/24/2003/02/2025 DRUG MONIT OR, PANEL 1, SCREE N, URINE pH 7.4 4.5-9. 0 Not Available [address] [address] [address], [place], [address], 03/02/2025 16:26:08 02/24/20 25 03/02/2025 DRUG MONIT OR, PANEL 1, SCREE N, URINE oxidant NEGATI VE mcg/m L <200 Not Available [facility] [address] [place], [address], 03/02/2025 16:26:08 02/24/20 25 03/02/2025 DRUG MONIT ORING TEMPL ATE notes and comments This drug testi ng is for medic al treat ment only. Judith sis was perfo rmed as non-f orens ic testi ng and these resul ts shoul d be used only [facility] to rende r diagn osis or treat ment, or to monit or progr ess of medic al condi tions . Note A: The resul ts are presu mptiv e; based only on elmer borges metho ds, and they have not been confi rmed by a defin itive metho d. [facility] Provi ders needi ng Inter preta tion jennifer tance , pleas e conta ct us at [phone] ([phone] ) M-F, 8am to 10pm EST Not Available [facility] [address] [address] , [place], [address], 03/02/2025 16:26:09 02/24/20 25 03/02/2025 CULTU RE, URINE , ROUTI NE culture, urine, routine SEE NOTE abnormal CULTU RE, URINE , ROUTI NE Micro Numbe r: [id number] Test Statu s: Final Speci men [...] lexin and lorac arbef . Not Available [facility] [employer] [facility] [id number] [facility] [place], [address], 03/02/2025 16:26:09 02/01/20 25 01/19/2025 US, obste tric, 1st trime ster No observ ation record ed. [email or web address] [facility] [address] [place], [address], 01/31/2025 17:19:55 Result Notes None recorded. Problems Name Problem SNOMED Code Status Onset Date Resolution Date Notes Provider Name and Address Organization Details Recorded Time Otitis 87439825 Active 2021 OTITIS; 02/11/20 9:46AM by Kathy Duncan, Office Visit; Promoted ; acuity set as *; OTITIS, RIGHT; 02/11/20 9:47AM by Kathy Duncan, Office Visit; Promoted ; acuity set as *; KATHY celis [facility] 3 11:46:16 Anxiety [id number] Active 2022 KATHY celis [facility] 3 11:46:16 Acne vulgaris 01684095 Active 2022 KATHY celis [facility] 3 11:46:16 Sprain of right knee [id number] 257351 Active 2022 Herbert Warren MD [address] [place] [address], 58943-882 5, [facility] 3 16:24:18 Pregnanc y 40750501 Completed 202201/27/2024 Sandy celis [facility] 5 12:33:11 Gestatio n period, 11 weeks 18011517 Active 2023 Herbert Warren MD [address] [place] [address], 99765-607 5, [facility] 4 10:51:57 Gestatio n period, 15 weeks 8129278 Active 2023 Herbert Warren MD [address] [place] [address], 61751-747 5, [facility] 4 18:26:38 Gestatio n period, 19 weeks 07918540 Active 2023 Herbert Warren MD [address] [place] [address], 64731-061 5, [facility] 4 10:52:28 Gestatio n period, 23 weeks 92941138 Active 2023 Herbert Warren MD [address] [place] [address], 68773-432 5, [facility] 4 16:57:20 Gestatio n period, 27 weeks 59787823 Active 2023 Herbert Warren MD [address] [place] [address], 18752-602 5, [facility] 4 16:22:57 Gestatio n period, 30 weeks 63159346 Active 2023 Herbert Warren MD [address] [place] [address], 83441-888 5, [facility] 4 08:36:42 Gestatio n period, 31 weeks 79079416 Active 2023 Herbert Warren MD [address] [place] [address], 88967-666 5, [facility] 4 16:35:11 Gestatio n period, 34 weeks 60123802 Active 2023 Herbert Warren MD [address] [place] [address], 51880-398 5, [facility] 4 17:19:46 Gestatio n period, 37 weeks 25924700 Active 2023 Herbert Warren MD [address] [place] [address], 04931-919 5, [facility] 4 16:41:10 Gestatio n period, 38 weeks 49284637 Active 2023 Herbert Warren MD [address] [place] [address], 99341-940 5, [facility] 4 14:05:05 Gestatio n period, 39 weeks 83568861 Active 2023 Herbert Warren MD [address] [place] [address], 50351-431 5, [facility] 4 08:28:39 Superfic ial thrombop hlebitis 6524044 Active 2023 Herbert Warren MD [address] [place] [address], 41823-323 5, [facility] 4 09:23:19 Mass of joint of right knee 76120274270 730981 Active 2023 Herbert Warren MD [address] [place] [address], 37208-786 5, [facility] 4 12:13:15 Pain of right knee region 53837881530 4105 Active 2023 Herbert Warren MD [address] [place] [address], 92720-468 5, [facility] 4 17:09:03 Contact dermatit is 95792639 Active 2024 Herbert Warren MD [address] [place] [address], 13238-554 5, [facility] 5 13:12:04 Seasonal allergic rhinitis 935331339 Active 2024 Herbert Warren MD [address] [place] [address], 55063-604 5, [facility] 13:12:11 Pregnanc y 95585731 Active 2024 Sandy Bernstein lalita [facility], Rodrigo 12:33:11 Postural dizzines s 954093045 Active 2024 Herbert Warren MD [address] [place] [address], [address] [place] [address] 5, [facility] Rodrigo 17:49:13 Acute gastroen teritis 30619898 Active 2024 Herbert Warren MD [address] [place] [address] 5, [facility]o 17:49:26 Gestatio n period, 14 weeks 33112204 Active 2024 Herbert Warren MD [address] [place] [address] 5, [facility] 15:38:26 Problem Notes None recorded. Procedures Surgical History Date Name Laterality Status Provider Name and Address Organization Details Recorded Time Appendectomy completed [facility] 06/15/2024 17:40:43 procedure on urinary bladder completed [facility], RobertLRocCRoc 06/15/2024 17:40:52 tonsilectomy/arpita oids completed ONARGA ARMINDA [facility] 11/05/2022 16:00:00 Imaging Results None recorded. Procedure Notes None recorded. Medical Equipment None Reported. Allergies Allergen ID Allergen Name Allergen Category Reaction Reaction Severity Criticality Documentation Date Start Date Code Code System Note Provider Name and Address Organization Details Recorded Time 5042 Product containin g penicilli n (product) medicatio n Not available Not available Not available 11/04/2022 76545 8001 SNOMED KATHY celis [facility], RobertLBrice 14:22:05 5043 amoxicill in medicatio n Not available Not available Not available 11/04/2022 723 RxNorm KATHY celis [facility], [facility] 3 16:11:49 68444 codeine medicatio n rash Not available low 12/26/2022 2670 RxNorm KATHY celis [facility] 3 16:12:05 Medications Name Sig Start Date [...] e 50 mcg/actua tion nasal spray,georgette [employer] [place] 1 spray every day by intranas al [...] 0; Recorded 02/11/20 22 9:50AM by Kathy Duncan, Office Visit; Not Available Not Available Not Available ProAir HFA 90 mcg/actua tion aerosol inhaler as needed 12/10 completed 0; Recorded 02/11/20 22 9:49AM by Kathy Duncna, Office Visit; Not Available Not Available Not [...] and Address Organization Details Last Updated DateTime 09/08/202 5 157.48 cm 98.14 % 37.8 kg/m2 07976.1 8 g 99 % 97 /min 18 /min 97.3 [degF] 142/90 mm[Hg] [facility] 15:59:35 Date Recorded Body height Body mass index (BMI) [Percentile] Per age and sex Body mass index (BMI) Body weight Oxygen saturation Heart rate Respiratory rate Body temperature Systolic And Diastolic Provider Name and Address Organization Details Last Updated DateTime 157.48 cm 97.88 % 37.1 kg/m2 66352.2 5 g 99 % 82 /min 16 /min 98.2 [degF] 122/80 mm[Hg] Telma Cote [facility] 14:03:38 Date Recorded Body height Body mass index (BMI) [Percentile] Per age and sex Body mass index (BMI) Body weight Oxygen saturation Heart rate Respiratory rate Body temperature Systolic And Diastolic Provider Name and Address Organization Details Last Updated DateTime 157.48 cm 98.11 % 37.8 kg/m2 44271.9 g 99 % 107 /min 18 /min 97.9 [degF] 118/74 mm[Hg] [facility] 09:37:50 Date Recorded Body height Body mass index (BMI) Body mass index (BMI) [Percentile] Per age and sex Body weight Provider Name and Address Organization Details Last Updated DateTime 03/14/2025 157.48 cm 37.1 kg/m2 97.81 % 60740.25 g [facility] 03/14/2025 14:17:53 Social History Question Answer Notes LastModified by Organizat ion Details LastModified Time Tobacco Smoking Status Never Smoker Telma Cote [facility] 06/15/2024 17:40:23 What Is Your Level Of Caffeine Consumption? None [email or web address] Information not available 02/14/2025 Do You Or Have You Ever Used Marijuana? Never Used [email or web address] Information not available 02/14/2025 What Was The Date Of Your Most Recent Tobacco Screening? 03/14/2025 [email or web address] Information not available 03/14/2025 Sex: Unknown Functional Status Question Answer Note LastModified by Organizat ion Details LastModified Time Do you use any illicit or recreational drugs? No [email or web address] Information not available 02/14/2025 What is your level of alcohol consumption? None [email or web address] Information not available 02/14/2025 Mental Status None [...] Recorded Time HPV9 9 completed KATHY celis [facility] 04/10/2023 08:15:44 IPV 9 completed KATHY celis [facility] 04/10/2023 08:15:44 MMR 1 completed KATHY celis [facility] 04/10/2023 08:15:44 MMR 7 completed KATHY celis [facility] 04/10/2023 08:15:44 pneumococcal conjugate PCV 7 6 completed KATHY celis [facility] 04/10/2023 08:15:44 pneumococcal conjugate PCV 7 7 completed KATHY celis [facility] 04/10/2023 08:15:44 pneumococcal conjugate PCV 7 6 completed KATHY celis [facility] 04/10/2023 08:15:44 pneumococcal conjugate PCV 7 7 completed KATHY celis, [facility] 04/10/2023 08:15:44 DTaP-IPV 1 completed KATHY celis, [facility] 04/10/2023 08:15:44 Tdap 9 completed KATHY celis, [facility] 04/10/2023 08:15:44 Pneumococcal conjugate PCV 13 1 completed KATHY celis, [facility] 04/10/2023 08:15:44 varicella 1 completed KATHY celis, [facility] 04/10/2023 08:15:44 varicella 7 completed KATHY celis, [facility] 04/10/2023 08:15:44 HPV, quadrivalent 9 completed KATHY celis, [facility] 04/10/2023 08:15:44 Hep B, adolescent or pediatric 6 completed KATHY celis, [facility] 04/10/2023 08:15:44 Hep A, ped/adol, 2 dose 8 completed KATHY celis, [facility] 04/10/2023 08:15:44 Hep A, ped/adol, 2 dose 9 completed KATHY celis, [facility] 04/10/2023 08:15:44 Hib (PRP-T) 6 completed KATHY celis, [facility] 04/10/2023 08:15:44 Hib (PRP-T) 7 completed KATHYSA ARMINDA celis, [facility] 04/10/2023 08:15:44 Hib (PRP-T) 6 completed KATHYSA ARMINDA celis, [facility] 04/10/2023 08:15:44 Hib (PRP-T) 7 completed KATHY celis, [facility] 04/10/2023 08:15:44 meningococcal MCV4P 9 completed KATHY celis, [facility] 04/10/2023 08:15:44 DTaP 8 completed KATHY celis [facility] 04/10/2023 08:15:44 DTaP-Hep B-IPV 6 completed KATHY celis, [facility] 04/10/2023 08:15:44 DTaP-Hep B-IPV 7 completed KATHY celis, [facility] 04/10/2023 08:15:44 DTaP-Hep B-IPV 6 [facility] 04/10/2023 08:15:44 meningococcal conjugate quadrivalent, MenACWY-TT (MCV4) 3 completed Not Available [facility] 03/14/2025 14:14:40 Tdap 4 completed Not Available [facility] 03/14/2025 14:14:40 Hep B, adolescent or pediatric 8 completed [facility] 04/10/2023 08:15:44 Past Encounters Encounter ID Performer Location Encounter Start Date Encounter Closed Date Diagnosis/Indication Diagnosis SNOMED-CT Code Diagnosis ICD10 Code Diagnosis IMO Codes Diagnosis Note [id number] Herbert Warren MD [facility] ([facility]) [address] [place] [address] [id number] 5 11/05/2022 16:24:35 2022 08:31:07 Acne vulgaris 56531761 L70.0 Discussed acne regiment with the patient. Encouraged daily facial cleanser followed by benzyl peroxide in the a.m. In the p.m. once again gentle facial cancer followed by tretinoin. Follow-up in 1 month. [id number] JIM BERNSTEIN NP [facility] ([facility]) [address] [place] [address] [id number] 5 12/04/2022 14:11:41 12/04/2022 15:12:28 Dysuria 98949590 R30.0 Acute urin kayla tract infection 767605717 N39.0 Discussed to take antibiotic as prescribed until completedU rine culture ordered - will notify of any resultsEdu cated patient on increasing PO fluids of water, decreasing caffeine (coffee) and sugary drinks.Dis cussed importance of avoiding baths, scented soaps, douching, perfumes.M ay take OTC AZO for 1-2 days as box directs for burning sensation. Discussed if developmen t of abdominal pain, flank pain, fever, vomiting, worsening symptoms return to walk-in, PCP or ED for re-evaluat ion. Return to clinic if any changes, any worsening, any concernsPa tient verbalized understand ing of plan. [id number] Herbert Warren MD [facility] ([facility]) [address] [place] [address] [id number] 5 12/10/2022 16:28:05 12/17/2022 21:52:51 Acne vulgaris 63265403 L70.0 Patient is happy with the progressio n of improvemen t so far. Continue with current regimen. Discussed using a lower percentage benzyl peroxide such as 5% in the AM. Follow-up if acne does not continue to get better or worsens. [id number] Herbert Warren MD [facility] ([facility]) [address] [place] [address] [id number] 5 12/26/2022 15:54:14 01/04/2023 08:55:28 Sprain of right knee 2863676432 8013146 S83.91XA Patient is has a mild sprain versus patellofem oral syndrome. Leaning towards patellofem oral syndrome based on location of discomfort . Recommend starting home exercises. Discussed initially rest and ice. Patient was instructed not to run, kneel, squat, or lift more than 20 pounds until pain is improved. [id number] Herbert Warren MD [facility] ([facility]) [address] [place] [address] [id number] 5 04/10/2023 09:50:25 04/14/2023 16:11:29 Normal in primigravida 9818939655 06068 Z34.01 Will get the patient started on vitamins. Will obtain a first trimester ultrasound to confirm dating. Plan on initial lab work at next visit. [id number] Herbert Warren MD [facility] ([facility]) [address] [place] [address] [id number] 5 04/16/2023 11:30:22 04/16/2023 15:32:47 [id number] Herbert Warren MD [facility] ([facility]) [address] [place] [address] [id number] 5 05/15/2023 11:11:07 05/15/2023 15:32:04 Normal in primigravida 9509552675 25116 Z34.01 Ultrasound confirmed dating. Will proceed with lab work today. Guidance provided and all questions were answered. Gestation period, 11 weeks 77566001 Z3A.11 [id number] Herbert Warren MD [facility] ([facility]) [address] [place] [address] [id number] 5 06/10/2023 16:41:41 06/14/2023 20:00:23 Normal in primigravida 9566201807 41388 Z34.01 Anticipato ry Guidance provided and all questions were answered. Gestation period, 15 weeks 9298921 Z3A.15 [id number] Herbert Warren MD [facility] ([facility]) [address] [place] [address] [id number] 5 07/08/2023 10:41:28 07/08/2023 11:57:44 Normal in primigravida 5001918675 14991 Z34.01 Anticipato ry Guidance provided and all questions were answered. Gestation period, 19 weeks 59039148 Z3A.19 [id number] Herbert Warren MD [facility] ([facility]) [address] [place] [address] [id number] 5 07/15/2023 15:28:02 07/16/2023 12:07:05 Normal in primigravida 9401696548 60668 Z34.01 Anticipato ry Guidance provided and all questions were answered. [id number] Herbert Warren MD [facility] ([facility]) [address] [place] [address] [id number] 5 08/05/2023 15:41:47 08/05/2023 16:18:36 Normal in primigravida 1602142388 69854 Z34.01 Anticipato ry Guidance provided and all questions were answered. Gestation period, 23 weeks 38359728 Z3A.23 [id number] Herbert Warren MD [facility] ([facility]) [address] [place] [address] [id number] 5 09/02/2023 16:10:53 09/02/2023 17:20:32 Normal in primigravida 0678519905 46434 Z34.02 Anticipato ry Guidance provided and all questions were answered. Gestation period, 27 weeks 12663040 Z3A.27 [id number] Herbert Warren MD [facility] ([facility]) [address] [place] [address] [id number] 5 09/25/2023 16:08:03 09/25/2023 16:50:42 Normal in primigravida 2748020530 17769 Z34.02 Anticipato ry Guidance provided and all questions were answered. Gestation period, 30 weeks 50827869 Z3A.30 [id number] Herbert Warren MD [facility] ([facility]) [address] [place], [place] [id number] 5 10/06/2023 16:07:24 10/06/2023 16:27:15 Normal in primigravida 9497090335 66381 Z34.02 Anticipato ry Guidance provided and all questions were answered. Gestation period, 31 weeks 62226187 Z3A.31 [id number] Herbert Warren MD [facility] ([facility]) [address] [place] [address] [id number] 5 10/13/2023 16:11:36 10/17/2023 04:04:09 [id number] Herbert Warren MD [facility] ([facility]) [address] [place] [address] [id number] 5 10/21/2023 15:57:36 10/21/2023 16:32:06 Normal in primigravida 3873165068 22382 Z34.02 Anticipato ry Guidance provided and all questions were answered. Gestation period, 34 weeks 45224037 Z3A.34 [id number] Herbert Warren MD [facility] ([facility]) [address] [place] [address] [id number] 5 11/11/2023 16:03:34 11/11/2023 16:59:56 Gestation period, 37 weeks 68910256 Z3A.37 Normal pre gnancy in primigravida 5795805071 92661 Z34.02 Anticipato ry Guidance provided and all questions were answered. [id number] Herbert Warren MD [facility] ([facility]) [address] [place] [address] [id number] 5 2023 16:02:25 2023 17:14:04 Normal in primigravida 9135784983 57968 Z34.02 Anticipato ry Guidance provided and all questions were answered. Gestation period, 38 weeks 45831053 Z3A.38 [id number] Herbert Warren MD [facility] ([facility]) [address] [place] [address] [id number] 5 11/25/2023 16:02:46 11/25/2023 16:56:10 Normal in primigravida 2777449622 94195 Z34.02 Anticipato ry Guidance provided and all questions were answered. Gestation period, 39 weeks 37523973 Z3A.39 [id number] Herbert Warren MD [facility] ([facility]) [address] [place] [address] [id number] 5 01/25/2024 15:43:55 01/25/2024 16:49:57 Contraception care management 961691905 Z30.9 Patient wishes to proceed with oral contracept fabiola. Discussed the importance of taking the medication at the same time every day. state 7883110 1 Z39.2 Today's history or examinatio n. Further restrictio ns needed. control as above. [id number] Herbert Warren MD [facility] ([facility]) [address] [place] [address] [id number] 5 04/19/2024 16:45:02 04/19/2024 17:36:21 Pain of right knee region 6352022142 50787 M25.561 Patient has done conservati ve measures including home exercises and anti-infla mmatory medication without improvemen t. Patient states that the pain has been present for the last year. The patient states that he continues to significan tly bother her especially with some tasks done at work. The patient was encouraged to avoid squatting and kneeling at this time. Note provided for restrictio ns. [id number] PEPITO WOLF [facility] ([facility]) [address] [place] [address] [id number] 5 06/15/2024 17:37:20 06/15/2024 18:43:44 Abdominal pain 35253518 R10.9 Go to ER with any worsening abdominal pain. Follow up with PCP. [id number] Herbert Warren MD [facility] ([facility]) [address] [place] [address] [id number] 5 08/04/2024 13:01:38 08/04/2024 14:07:33 Seasonal allergic rhinitis 446792164 J30.2 Exam is most consistent with allergies. Recommend starting antihistam ine and Flonase [id number] Herbert Warren MD [facility] ([facility]) [address] [place] [address] [id number] 5 01/03/2025 12:29:45 01/03/2025 13:06:54 Normal in multigravida 8754477463 49873 Z34.80 38407625 Schedule the patient for for semester ultrasound . Will start her on prenatals. We will hold off on lab work at this time. No significan t concerns. Guidance provided on new . [id number] Herbert Warren MD [facility] ([facility]) [address] [place] [address] [id number] 5 01/09/2025 15:53:07 01/09/2025 16:26:52 Postural dizziness 789248687 R42 60175214 The patient to push fluids. Will provide a note for work to minimize bending kneeling and stooping. No lifting greater than 10 pounds at this time. Acute gastroenteritis 69 955261 K52.9 8743 Patient has mild gastroente ritis and this will likely resolve without further interventi on. Push fluids as above. [id number] PEPITO BERNSTEIN [facility] ([facility]) [address] [place] [address] [id number] 5 01/16/2025 13:50:58 01/16/2025 15:50:09 Blood pressure above reference range 69547853 R03.0 181627 BP reading normal here in clinic. Reassuranc e provided. Continue monitoring bp BID and call OB with results. [id number] Herbert Warren MD [facility] ([facility]) [address] [place] [address] [id number] 5 01/18/2025 12:49:26 01/23/2025 16:04:13 [id number] Herbert Warren MD [facility] ([facility]) [address] [place] [address] [id number] 5 02/14/2025 09:24:08 02/14/2025 10:24:44 Normal 56241564 Z34.90 - Maintain regular follow-up. Due date September 12 with follow-up in a month for continued progress assessment . Allergic rhinitis 753224 04 J30.9 - Manage with continued use of Claritin or Zyrtec alongside Tylenol and nasal sprays. Adjust as needed based on symptom response. [id number] Herbert Warren MD [facility] ([facility]) [address] [place] [address] [id number] 5 03/14/2025 14:13:42 03/14/2025 14:43:25 Normal in multigravida 5767075370 61115 Z34.80 [id number] -anticipat ory guidance provided. No concerns Gestation period, 14 weeks 63325461 Z3A.14 [id number] Health Concerns Section Related Observation LastModified by Organization Detai ls LastModified Time None Recorded Concern Status LastModified by Organization Details LastModified Time None Recorded Advance Directives Directive None Recorded Payers Insurance Date Sequence Insurance Name Policy Number Policy Ro Covered Member ID Ro Member ID Guarantor Name 01/03/2025 1 [facility] (MEDICAID HMO) Lorenza B Nehemiah [id number] Lorenza B Nehemiah 01/03/2025 [facility] (MEDICAID HMO) Lorenza B Nehemiah [id number] Lorenza B Nehemiah 01/26/2024 1 *SELF PAY* Abelino Cox Nehemiah 03/11/2025 1 [facility] (MEDICAID HMO) Lorenza B Nehemiah [id number] Lorenza B Nehemiah 03/11/2025 [facility] (MEDICAID HMO) Lorenza B Nehemiah [id number] Lorenza B Nehemiah 03/11/2025 [place]: [facility] (INSTITUTIONAL) Lorenza B Nehemiah [id number] Lorenza B Nehemiah Notes Date Note Type Note Provider Name and Address Organization Details Recorded Time 5 text/html ROS as noted in the HPI This is a 19-year-old female comes in today for evaluation. Patient states that she has dizziness when she stephanie and then stands or bends over and stands. She states that this is happening frequently at work.she is having some cramping and diarrhea the last couple of days. Herbert Warren MD [address] [place] [address], [phone], [facility] 01/09/2025 17:51:16 5 text/html HypertensionReported by PatientROS as noted [...] in February. No prior hx of HTN GRECIA ELISEPEPITO [address] [place], [phone], [facility] 01/16/2025 15:44:16 5 text/html jr ob routineReported by PatientHPIFor associated symptoms, patient reportsno abdominal pain,no cramping,no contractions,no bleeding,no rom,no vaginal discharge,no vaginal/vulvar itching or irritation,no dysuria,no frequency,no urgency,no hematuria,no fever,no nausea,no emesis,no constipation,no diarrhea/loose stool,no edema,no visual changes,no headache,no dizziness,no decrease in urine volume,no breathlessness, andno hyperreflexia. The patient is a 19-year-old female presenting for ARELY visit. she has a persistent, dry, and occasionally productive cough for three weeks. The cough has been particularly troublesome at night, leading to nausea. Oybj-ykv-qtsjaou medications have failed to alleviate her symptoms, and she experienced chronic drainage causing throat irritation as evidenced by cobblestoning. The patient denies systemic symptoms such as fever or ear pain. Her is currently at 10 weeks and progressing normally, with a targeted due date of September 12. Herbert Warren MD [address] [place], [id number], [facility] 02/14/2025 10:59:21 5 text/html jr ob routineReported by PatientHPIFor [...] no specific abnormalities mentioned. Herbert Warren MD [address] [place] [address], [id number], [facility], [place] 03/14/2025 15:42:34 OBGyn Episode Ob Episode Information Episode Created Date Number of Fetuses Patient Bloodtype Patient rh Status Prepregnancy Weight lbs Domestic Partner Domestic Partner Phone Father Name Senior Telecommunications Specialist Status 04/10/20 23 1 A Positive [place] CLOSED Fetus Data First Name Last Name Admitted to NICU Weight (g) Sex Living Outcome Pediatric Complications Fetus ID Race Codes Race Delivery Type false F true Full Term 3144 VAGINAL Zeeshan Calculation Initial Zeeshan Date Initial Exam Date Initial Exam Provider Initial Ultrasound Date Last Menstrual Period Date Ultra Sound Weeks Gestation 12/01/2023 04/10/2023 02/25/2023 0 Eighteen To Twenty Week Zeeshan Update Ultra Sound Date Fundal Height At Umbil Quickening Date Ultra Sound Latest Weeks Gestation Final Zeeshan Confirmed By Final Zeeshan Confirmed Date Final Zeeshan Date Ultra Sound Latest Days Gestation 0 12/02/19 24 0 Pre- Flowsheet Flowsheet Date 04/10/2023 Tristan Score Blood Edema Fundus Height Fundus Units Glucose Ketones Leukocytes Nitrite Labor Signs Protein Cervic Dilation Cervic Effacement Cervic Station Type Weight in lbs Pre/Post Dialysis Refused With clothes 171.354789032741 BP Diastolic BP Location Tested BP Systolic BP Type 58 L arm 104 sitting Fetus Heart Rate Present Fetus Movement Comments Flowsheet Date 04/16/2023 Tristan Score Blood Edema Fundus Height Fundus Units Glucose Ketones Leukocytes Nitrite Labor Signs Protein Cervic Dilation Cervic Effacement Cervic Station Type Weight in lbs Pre/Post Dialysis Refused BP Diastolic BP Location Tested BP Systolic BP Type Fetus Heart Rate Present Fetus Movement Comments Flowsheet Date 05/15/2023 Tristan Score Blood Edema Fundus Height Fundus Units Glucose Ketones Leukocytes Nitrite Labor Signs Protein Cervic Dilation Cervic Effacement Cervic Station Type Weight in lbs Pre/Post Dialysis Refused With clothes 168.932113295286 BP Diastolic BP Location Tested BP Systolic BP Type 64 L arm 122 sitting Fetus Heart Rate Present Fetus Movement Comments Flowsheet Date 05/15/2023 Tristan Score Blood Edema Fundus Height Fundus Units Glucose Ketones Leukocytes Nitrite Labor Signs Protein Cervic Dilation Cervic Effacement Cervic Station none none Negative trace Type Weight in lbs Pre/Post Dialysis Refused BP Diastolic BP Location Tested BP Systolic BP Type Fetus Heart Rate Present Fetus Movement Comments Flowsheet Date 06/10/2023 Tristan Score Blood Edema Fundus Height Fundus Units Glucose Ketones Leukocytes Nitrite Labor Signs Protein Cervic Dilation Cervic Effacement Cervic Station none none Negative trace Type Weight in lbs Pre/Post Dialysis Refused With clothes 168.481967524289 BP Diastolic BP Location Tested BP Systolic BP Type 78 L arm 126 sitting Fetus Heart Rate Present A 160 Fetus Movement Comments Flowsheet Date 07/08/2023 Tristan Score Blood Edema Fundus Height Fundus Units Glucose Ketones Leukocytes Nitrite Labor Signs Protein Cervic Dilation Cervic Effacement Cervic Station none none Negative neg Type Weight in lbs Pre/Post Dialysis Refused With clothes 171.967751110840 BP Diastolic BP Location Tested BP Systolic BP Type 66 L arm 128 sitting Fetus Heart Rate Present A 175 Fetus Movement Comments Flowsheet Date 07/15/2023 Tristan Score Blood Edema Fundus Height Fundus Units Glucose Ketones Leukocytes Nitrite Labor Signs Protein Cervic Dilation Cervic Effacement Cervic Station Type Weight in lbs Pre/Post Dialysis Refused BP Diastolic BP Location Tested BP Systolic BP Type Fetus Heart Rate Present Fetus Movement Comments Flowsheet Date 08/05/2023 Tristan Score Blood Edema Fundus Height Fundus Units Glucose Ketones Leukocytes Nitrite Labor Signs Protein Cervic Dilation Cervic Effacement Cervic Station 23 cm none 1+ Negative trace Type Weight in lbs Pre/Post Dialysis Refused With clothes 182.872917962206 BP Diastolic BP Location Tested BP Systolic BP Type 80 L arm 136 sitting Fetus Heart Rate Present A 165 Fetus Movement A Yes Comments Flowsheet Date 09/02/2023 Tristan Score Blood Edema Fundus Height Fundus Units Glucose Ketones Leukocytes Nitrite Labor Signs Protein Cervic Dilation Cervic Effacement Cervic Station 27 cm none none Negative trace Type Weight in lbs Pre/Post Dialysis Refused With clothes 185.500809637083 BP Diastolic BP Location Tested BP Systolic BP Type 80 L arm 134 sitting Fetus Heart Rate Present A 165 Fetus Movement A Yes Comments Flowsheet Date 09/25/2023 Tristan Score Blood Edema Fundus Height Fundus Units Glucose Ketones Leukocytes Nitrite Labor Signs Protein Cervic Dilation Cervic Effacement Cervic Station none 30 cm none none Negative neg Type Weight in lbs Pre/Post Dialysis Refused With clothes 192.836830855015 BP Diastolic BP Location Tested BP Systolic BP Type 68 L arm 122 sitting Fetus Heart Rate Present A 145 Fetus Movement A Yes Comments Flowsheet Date 10/06/2023 Tristan Score Blood Edema Fundus Height Fundus Units Glucose Ketones Leukocytes Nitrite Labor Signs Protein Cervic Dilation Cervic Effacement Cervic Station 32 cm none none Negative neg Type Weight in lbs Pre/Post Dialysis Refused With clothes 194.701390351139 BP Diastolic BP Location Tested BP Systolic BP Type 80 130 Fetus Heart Rate Present A 150 Fetus Movement A Yes Comments Flowsheet Date 10/13/2023 Tristan Score Blood Edema Fundus Height Fundus Units Glucose Ketones Leukocytes Nitrite Labor Signs Protein Cervic Dilation Cervic Effacement Cervic Station Type Weight in lbs Pre/Post Dialysis Refused BP Diastolic BP Location Tested BP Systolic BP Type Fetus Heart Rate Present Fetus Movement Comments Flowsheet Date 10/21/2023 Tristan Score Blood Edema Fundus Height Fundus Units Glucose Ketones Leukocytes Nitrite Labor Signs Protein Cervic Dilation Cervic Effacement Cervic Station 34 cm none 1+ Negative trace Type Weight in lbs Pre/Post Dialysis Refused With clothes 198.313853051019 BP Diastolic BP Location Tested BP Systolic BP Type 84 L arm 130 sitting Fetus Heart Rate Present A 120 Fetus Movement A Yes Comments Flowsheet Date 11/11/2023 Tristan Score Blood Edema Fundus Height Fundus Units Glucose Ketones Leukocytes Nitrite Labor Signs Protein Cervic Dilation Cervic Effacement Cervic Station none 2+ Negative neg 1cm Type Weight in lbs Pre/Post Dialysis Refused With clothes 204.701395924092 BP Diastolic BP Location Tested BP Systolic BP Type 84 L arm 134 sitting Fetus Heart Rate Present A 160 Fetus Movement A Yes Comments Pt does not want epidural or epidural consult sent over. GBS obtained today. Flowsheet Date 11/13/2023 Tristan Score Blood Edema Fundus Height Fundus Units Glucose Ketones Leukocytes Nitrite Labor Signs Protein Cervic Dilation Cervic Effacement Cervic Station Type Weight in lbs Pre/Post Dialysis Refused BP Diastolic BP Location Tested BP Systolic BP Type Fetus Heart Rate Present Fetus Movement Comments GBS NEGATIVE. Flowsheet Date 2023 Tristan Score Blood Edema Fundus Height Fundus Units Glucose Ketones Leukocytes Nitrite Labor Signs Protein Cervic Dilation Cervic Effacement Cervic Station trace 38 cm none 2+ Negative trace Type Weight in lbs Pre/Post Dialysis Refused With clothes 208.413648373093 BP Diastolic BP Location Tested BP Systolic BP Type 84 140 Fetus Heart Rate Present A 160 Fetus Movement A Yes Comments Pt denies any contractions, rupture of membranes Flowsheet Date 11/25/2023 Tristan Score Blood Edema Fundus Height Fundus Units Glucose Ketones Leukocytes Nitrite Labor Signs Protein Cervic Dilation Cervic Effacement Cervic Station trace 38 cm none 2+ Negative none trace 1cm 30% -3 Type Weight in lbs Pre/Post Dialysis Refused With clothes 208.577847648673 BP Diastolic BP Location Tested BP Systolic BP Type 84 L arm 130 sitting Fetus Heart Rate Present A 150 Present Fetus Movement A Yes Comments c/o: cramps and headaches. w ants to be checked today. cytotec consent signed today. Flowsheet Date 11/27/2023 Tristan Score Blood Edema Fundus Height Fundus Units Glucose Ketones Leukocytes Nitrite Labor Signs Protein Cervic Dilation Cervic Effacement Cervic Station Type Weight in lbs Pre/Post Dialysis Refused BP Diastolic BP Location Tested BP Systolic BP Type Fetus Heart Rate Present Fetus Movement Comments chart and cytotec consent se nt to L&D Flowsheet Date 01/25/2024 Tristan Score Blood Edema Fundus Height Fundus Units Glucose Ketones Leukocytes Nitrite Labor Signs Protein Cervic Dilation Cervic Effacement Cervic Station Type Weight in lbs Pre/Post Dialysis Refused With clothes 194.149827182040 BP Diastolic BP Location Tested BP Systolic BP Type 88 L arm 144 sitting Fetus Heart Rate Present Fetus Movement Comments Menstrual History Last Menstrual Date Menses Monthly On Bcp Conception Prior Menses Frequency Hcg Plus Date Menarche Onset Age 1002/25/2023 true Genetic Screening And Infection History Question Response Note Patient's Age Will Be 35 Yea rs Or Older At Estimated Date of Delivery false Thalassemia (Namibian, Kenyan, Mediterranean, Or Background): MCV < 80 false Neural Tube Defect (Meningom yelocele, Spina Bifida, Or Anencephaly) false Congenital Heart Defect false Down Syndrome false Zack-Sachs (eg, Lutheran, Cajun, Spanish-Colombian) f alse Laurent Disease false Sickle Cell Disease Or Trait () false Hemophilia Or Other Blood Disorders false Muscular Dystrophy false Cystic Fibrosis true aunt and uncle [place]'s Chorea false Intellectual Disability/Autism true n ephew If Yes, Was Person Tested For Fragile X? false Other Inherited Genetic Or Chromosomal Disorder false Maternal Metabolic Disorder (eg, Type 1 Diabetes , PKU) false Patient Or Baby's Father Had A Child With Defects Not Listed Above false Recurrent Loss, Or A Stillbirth false Medications (including Suppl ements, Vitamins, Herbs, OTC Drugs), Illicit/Recreational Drugs, Alcohol true Flovent in haler If Yes, Agent(s) And Strength/Dosage false Any [...] Post Complications Tubal Sterilization Discharge Date Comments 4 Sponta neous None 39.4 false Herbert Warren MD None false Discharge Information Feeding Method Contraceptive Method Maternal HG B and HCT Levels Ob Episode Information Episode Created Date Number of Fetuses Patient Bloodtype Patient rh Status Prepregnancy Weight lbs Domestic Partner Domestic Partner Phone Father Name Senior Telecommunications Specialist Status 01/04/20 25 1 A Positive [address] [place] OPEN Fetus Data First Name Last [...] Weight in lbs Pre/Post Dialysis Refused Weight 205.823092485498 BP Diastolic BP Location Tested BP Systolic BP Type 74 122 Fetus Heart Rate Present Fetus Movement Comments Flowsheet Date 01/09/2025 Tristan Score Blood Edema Fundus Height Fundus Units Glucose Ketones Leukocytes Nitrite Labor Signs Protein Cervic Dilation Cervic Effacement Cervic Station Type Weight in lbs Pre/Post Dialysis Refused With clothes 206.805159936619 BP Diastolic BP Location Tested BP Systolic BP Type 90 L arm 142 sitting Fetus Heart Rate Present Fetus Movement Comments Flowsheet Date 01/16/2025 Tristan Score Blood Edema Fundus Height Fundus Units Glucose Ketones Leukocytes Nitrite Labor Signs Protein Cervic Dilation Cervic Effacement Cervic Station Type Weight in lbs Pre/Post Dialysis Refused Weight 203.618300601113 BP Diastolic BP Location Tested BP Systolic [...] in lbs Pre/Post Dialysis Refused With clothes 206.714185236052 BP Diastolic BP Location Tested BP Systolic BP Type 74 L arm 118 sitting Fetus Heart Rate Present Fetus Movement A No Comments Flowsheet Date 03/14/2025 Tristan Score Blood Edema Fundus Height Fundus Units Glucose Ketones Leukocytes Nitrite Labor Signs Protein Cervic Dilation Cervic Effacement Cervic Station none none Negative trace Type Weight in lbs Pre/Post Dialysis Refused Weight 203.098206881081 BP Diastolic BP Location Tested BP Systolic BP Type Fetus Heart Rate Present A 150 Fetus Movement Comments Menstrual History Last Menstrual Date Menses Monthly On Bcp Conception Prior Menses Frequency Hcg Plus Date Menarche Onset Age 0712/01/2024 Genetic Screening And Infection History Question Response Note Patient's Age Will Be 35 Years Or Older At Estim ated Date of Delivery false Thalassemia (Namibian, Kenyan, Mediterranean, Or Background): MCV < 80 false Neural Tube Defect (Meningomyelocele, Spina Bifi da, Or Anencephaly) false Congenital Heart Defect false Down Syndrome false Zack-Sachs (eg, Lutheran, Cajun, Spanish-Colombian) f alse Laurent Disease false Sickle Cell Disease Or Trait () false Hemophilia Or Other Blood Disorders false Muscular Dystrophy false Cystic Fibrosis true [place]'s Chorea false Intellectual Disability/Autism true If Yes, [...]
--- OUTSIDE RECORDS SUMMARY | 2025-04-11 23:45 | XMS_ITS | Continuity of Care Document ---
Author Organization [facility], [place], [facility] ([facility]) Address [address] [place] [address] Care Team Providers Care Apartment Community Manager Name Role Phone HERBERT WARREN Primary Care [...] as expected. [email or web address] Not available 02/14/2025 10:02:57 Plan of Treatment Reminders Order Date Submit [...] RPR (rapid plasma reagin) , serum 2024 [employer] [facility], [address] [place] [address] 248, [address], [place], [address], 03/02/2025 16:26:07 CBC w/ auto diff 2024 [employer] [facility], [address] [place] [address], [address], [place], [address], 03/02/2025 16:26:05 hepatit is C virus Ab, serum 2024 [facility], [address] [place] [address] 248, [address], [place], [address], 03/02/2025 16:26:05 HIV 1+2 Ab + HIV1 p24 Ag, quantit ative immunoa ssay, serum 2024 [employer] [facility], [address] [place] [address] 248, [address], [place], [address], 03/02/2025 16:26:04 antibod y screen, serum or plasma 2024 025 [employer] [facility], [address] [place] [address] 248, [address], [place], [address], 03/02/2025 16:26:08 abo group + rh type, blood 2024 025 [employer] [facility], [address] [place] [address] 248, [address], [place], [address], 03/02/2025 16:26:08 HBsAg (hepati tis B surface Ag), serum [facility] [address] [place] [address], [address], [place], [address], 03/02/2025 16:26:05 rubella igg Ab screen, serum 2024 [facility], [address] [place] [address], [address], [place], [address], 03/02/2025 16:26:06 urinaly sis, complet e 2024 [facility], [address] [place] [address], [address], [place], [address], 03/02/2025 16:26:04 culture , urine 2024 [facility], [address] [place] [address], [address], [place], [address], 03/02/2025 16:26:09 drug screen, urine 2024 [facility], [address] [place] [address], [address], [place], [address], 03/02/2025 16:26:08 CT + NG RNA, PCR, unspeci fied specime n 2024 [facility], [address] [place] [address], [address], [place], [address], 03/02/2025 16:26:07 unliste d lab - qnatal( R) advance d 2024 [facility], [address] [place] [address], [address], [place], [address], 03/02/2025 16:26:06 Referral None recorde d. Procedures None recorde d. Surgeries None recorde d. Imaging None recorde d. Medication Orders flutica sone propion ate 50 mcg/act uation nasal spray,s uspensi on 2024 025 [facility], [address], [place], [address], 03/14/2025 14:22:36 Patient TargetsNo targets recorded. Patient Instructions Encounter Date Encounter Id Patient Instructions Last Modified By Organization Details Last Modified Time 02/14/2025 [id number] - Continue takin g Claritin or Zyrtec daily. - Use nasal spray as needed for drainage. - Take Tylenol as directed for relief of throat discomfort. - Monitor symptoms and contact us if the cough worsens or is not improving. - Attend the next visit in one month. - Reach out immediately with any concerns about the or other health issues. [id number] Not available 02/14/2025 10:03:00 I discussed with [...] and cough. [email or web address] Not available 02/14/2025 10:03:00 Reason for Referral None Reported. Results Created [...] nce of HIV infec tion. Not Available [address], [address], 03/02/2025 16:26:04 02/24/2003/02/2025 HIV 1/2 ANTIG EN/AN TIBOD Y,FOU RTH GENER ATION W/RFL HIV Ag/Ab, screen NON-RE ACTIVE non-re active normal Not Available [address], [address], 03/02/2025 16:26:04 02/24/2003/02/2025 URINA LYSIS , COMPL ETE color YELLOW yellow normal Not Available [address], [address], 03/02/2025 16:26:04 02/24/2003/02/2025 URINA LYSIS , COMPL ETE appearance CLEAR clear normal Not Available [address], [address], 03/02/2025 16:26:04 02/24/2003/02/2025 URINA LYSIS , COMPL ETE specific gravity 1.024 1.001- 1.035 normal Not Available [address], [address], 03/02/2025 16:26:04 02/24/2003/02/2025 URINA LYSIS , COMPL ETE pH 6.5 5.0-8. 0 normal Not Available [address], [address], 03/02/2025 16:26:04 02/24/2003/02/2025 URINA LYSIS , COMPL ETE glucose NEGATI VE negati ve normal Not Available [address], [address], 03/02/2025 16:26:04 02/24/20 25 03/02/2025 URINA LYSIS , COMPL ETE bilirubin NEGATI VE negati ve normal Not Available [facility] [address] [address], [place], [address], 03/02/2025 16:26:04 02/24/2003/02/2025 URINA LYSIS , COMPL ETE ketones NEGATI VE negati ve normal Not Available [address], [address], 03/02/2025 16:26:04 02/24/2003/02/2025 URINA LYSIS , COMPL ETE occult blood NEGATI VE negati ve normal Not Available [address], [address], 03/02/2025 16:26:04 02/24/2003/02/2025 URINA LYSIS , COMPL ETE protein TRACE negati ve abnormal Not Available [address], [address], 03/02/2025 16:26:04 02/24/2003/02/2025 URINA LYSIS , COMPL ETE nitrite NEGATI VE negati ve normal Not Available [address], [address], 03/02/2025 16:26:04 02/24/2003/02/2025 URINA LYSIS , COMPL ETE leukocyte esterase NEGATI VE negati ve normal Not Available [address], [address], 03/02/2025 16:26:04 02/24/2003/02/2025 URINA LYSIS , COMPL ETE WBC 0-5 /hpf < or = 5 normal Not Available [address], [address], 03/02/2025 16:26:04 02/24/2003/02/2025 URINA LYSIS , COMPL ETE RBC NONE SEEN /hpf < or = 2 normal Not Available [address] [place], [address], 03/02/2025 16:26:04 02/24/2003/02/2025 URINA LYSIS , COMPL ETE squamous epithelial cells 10-20 /hpf < or = 5 abnormal Not Available [address], [address], 03/02/2025 16:26:04 02/24/2003/02/2025 URINA LYSIS , COMPL ETE bacteria FEW /hpf none seen abnormal Not Available [facility] [address], [address], 03/02/2025 16:26:04 02/24/2003/02/2025 URINA LYSIS , COMPL ETE hyaline cast NONE SEEN /lpf none seen normal Not Available [address], [address], 03/02/2025 16:26:04 02/24/2003/02/2025 URINA LYSIS , COMPL ETE note This urine was judith zed for the prese nce of WBC, RBC, bacte guerita, casts , and other forme d eleme nts. Only those eleme nts seen were repor joao. Not Available [address], [address], 03/02/2025 16:26:04 02/24/2003/02/2025 CBC (INCL UDES DIFF/ PLT) white blood cell count 10.8 thous and/u L 3.8-10 .8 normal Not Available [facility] [address], [address], 03/02/2025 16:26:05 02/24/2003/02/2025 CBC (INCL UDES DIFF/ PLT) red blood cell count 4.58 sweta on/uL 3.80-5 .10 normal Not Available [address], [address], 03/02/2025 16:26:05 02/24/20 25 03/02/2025 CBC (INCL UDES DIFF/ PLT) hemoglobin 13.1 g/dL 11.7-1 5.5 normal Not Available [address], [address], 03/02/2025 16:26:05 02/24/2003/02/2025 CBC (INCL UDES DIFF/ PLT) hematocrit 41.4 % 35.0-4 5.0 normal Not Available [facility] [address], [address], 03/02/2025 16:26:05 02/24/2003/02/2025 CBC (INCL UDES DIFF/ PLT) MCV 90.4 fL 80.0-1 00.0 normal Not Available [address], [address], 03/02/2025 16:26:05 02/24/2003/02/2025 CBC (INCL UDES DIFF/ PLT) MCH 28.6 pg 27.0-3 3.0 normal Not Available [address], [address], 03/02/2025 16:26:05 02/24/2003/02/2025 CBC (INCL UDES DIFF/ PLT) MCHC 31.6 g/dL 32.0-3 6.0 low For adult s, a sligh t decre ase in the calcu lated MCHC value (in the range of 30 to 32 g/dL) is most likel y not clini skyler pateli verónica t; wagner er, it shoul d be inter prete d with cauti on in corre latio n with other red cell padmini eters and the patie nt's clini basil condi tion. Not Available [facility] [address], [address], 03/02/2025 16:26:05 02/24/20 25 03/02/2025 CBC (INCL UDES DIFF/ PLT) RDW 13.8 % 11.0-1 5.0 normal Not Available [address], [address], 03/02/2025 16:26:05 02/24/2003/02/2025 CBC (INCL UDES DIFF/ PLT) platelet count 269 thous and/u L 140-40 0 normal Not Available [address], [address], 03/02/2025 16:26:05 02/24/2003/02/2025 CBC (INCL UDES DIFF/ PLT) MPV 9.7 fL 7.5-12 .5 normal Not Available [address], [address], 03/02/2025 16:26:05 02/24/2003/02/2025 CBC (INCL UDES DIFF/ PLT) absolute neutrophils 7668 cells /uL 1500-7 800 normal Not Available [address], [address], 03/02/2025 16:26:05 02/24/20 25 03/02/2025 CBC (INCL UDES DIFF/ PLT) absolute lymphocytes 2527 cells /uL 850-39 00 normal Not Available [address], [address], 03/02/2025 16:26:05 02/24/2003/02/2025 CBC (INCL UDES DIFF/ PLT) absolute monocytes 454 cells /uL 200-95 0 normal Not Available [address], [address], 03/02/2025 16:26:05 02/24/2003/02/2025 CBC (INCL UDES DIFF/ PLT) absolute eosinophils 97 cells /uL 15-500 normal Not Available [address], [address], 03/02/2025 16:26:05 02/24/2003/02/2025 CBC (INCL UDES DIFF/ PLT) absolute basophils 54 cells /uL 0-200 normal Not Available [address], [address], 03/02/2025 16:26:05 02/24/2003/02/2025 CBC (INCL UDES DIFF/ PLT) neutrophils 71 % normal Not Available [address], [address], 03/02/2025 16:26:05 02/24/2003/02/2025 CBC (INCL UDES DIFF/ PLT) lymphocytes 23.4 % normal Not Available [address], [address], 03/02/2025 16:26:05 02/24/2003/02/2025 CBC (INCL UDES DIFF/ PLT) monocytes 4.2 % normal Not Available [address], [address], 03/02/2025 16:26:05 02/24/2003/02/2025 CBC (INCL UDES DIFF/ PLT) eosinophils 0.9 % normal Not Available [address], [address], 03/02/2025 16:26:05 02/24/2003/02/2025 CBC (INCL UDES DIFF/ PLT) basophils 0.5 % normal Not Available [address], [address], 03/02/2025 16:26:05 02/24/2003/02/2025 HEPAT ITIS B SURFA CE ANTIG EN W/REF L CONFI RM hepatitis B surface antigen NON-RE ACTIVE non-re active normal For addit ional infor terese villalpando e refer to http: //[facility] stdia gnost ics.c om/fa q/FAQ 202 (This link is being provi ded for infor matio nal/ educa yosef l purpo ses only. ) Not Available [facility] [address] [place], [address], 03/02/2025 16:26:05 02/24/2003/02/2025 HEPAT ITIS C AB [...] a test for HCV RNA (test code 80857 ) is sugge sted. For addit ional suer [facility] pleas e refer to http: //[facility] stdia gnost ics.c om/fa q/FAQ 22v1 (This link is being provi ded for infor matio nal/ educa yosef l purpo ses only. ) Not Available [facility] [address], [address], 03/02/2025 16:26:05 02/24/2003/02/2025 RUBEL LA AB (IGG) [...] with rubel la virus . Not Available [facility] [address] [address] [place], [address], 03/02/2025 16:26:06 02/24/20 25 03/02/2025 QNATA L(R) ADVAN CARLITOS number of fetuses? 1 Not Available [address], [address], 03/02/2025 16:26:06 02/24/20 25 03/02/2025 QNATA L(R) ADVAN CARLITOS advanced maternal age? NOT GIVEN Not Available [address], [address], 03/02/2025 16:26:06 02/24/2003/02/2025 QNATA L(R) ADVAN CARLITOS abnormal sena? NOT GIVEN Not Available [address], [address], 03/02/2025 16:26:06 02/24/2003/02/2025 QNATA L(R) ADVAN CARLITOS abnormal US? NOT GIVEN Not Available [address], [address], 03/02/2025 16:26:06 02/24/2003/02/2025 QNATA L(R) ADVAN CARLITOS personal/fam history? NOT GIVEN Not Available [address], [address], 03/02/2025 16:26:06 02/24/2003/02/2025 QNATA L(R) ADVAN CARLITOS interpretati on SEE NOTE This speci men showe d an expec joao repre senta tion of chrom osome 21, 18, and 13 mater ial. See Tommy victor below . Not Available [address], [address], 03/02/2025 16:26:06 02/24/20 25 03/02/2025 QNATA L(R) ADVAN CARLITOS trisomy 21 (T21) NEGATI VE Not Available [address], [address], 03/02/2025 16:26:06 02/24/20 25 03/02/2025 QNATA L(R) ADVAN CARLITOS trisomy 18 (T18) NEGATI VE Not Available [address], [address], 03/02/2025 16:26:06 02/24/20 25 03/02/2025 QNATA L(R) ADVAN CARLITOS trisomy 13 (T13) NEGATI VE Not Available [address], [address], 03/02/2025 16:26:06 02/24/2003/02/2025 QNATA L(R) ADVAN CARLITOS Y chromosome DETECT ED Not Available [address], [address], 03/02/2025 16:26:06 02/24/20 25 03/02/2025 QNATA L(R) ADVAN CARLITOS Y chr. interpretati on SEE NOTE Consi stent with a male fetus . Not Available [address], [address], 03/02/2025 16:26:06 02/24/20 25 03/02/2025 QNATA L(R) ADVAN CARLITOS sex chromosome NO ANEUPL OIDY Not Available [address], [address], 03/02/2025 16:26:06 02/24/2003/02/2025 QNATA L(R) ADVAN CARLITOS sex chromosome interp SEE NOTE No appar ent abnor malit y was detec joao. See Tommy victor below . Not Available [address], [address], 03/02/2025 16:26:06 02/24/20 25 03/02/2025 QNATA L(R) ADVAN CARLITOS microdeletio n NOT DETECT ED Not Available [address], [address], 03/02/2025 16:26:06 02/24/20 25 03/02/2025 QNATA L(R) ADVAN CARLITOS microdeletio n interp SEE NOTE No appar ent abnor malit y was detec joao. See Tommy victor below . Not Available [address], [address], 03/02/2025 16:26:06 02/24/2003/02/2025 QNATA L(R) ADVAN CARLITOS gestational age(in weeks) 11 Not Available [address], [address], 03/02/2025 16:26:06 02/24/20 25 03/02/2025 QNATA L(R) ADVAN CARLITOS gestational age (in days) 2 Not Available [address], [address], 03/02/2025 16:26:06 02/24/20 25 03/02/2025 QNATA L(R) ADVAN CARLITOS fraction 10.10% Not Available [address], [address], 03/02/2025 16:26:06 02/24/20 25 03/02/2025 QNATA L(R) ADVAN CARLITOS laboratory comments SEE NOTE A porti on of the testi ng was perfo rmed at [facility] . Labor atory resul ts and submi tted clini basil infor matio n revie wed by Dneice Ibarra, PhD, FAC , [facility]. Not Available [address], [address], 03/02/2025 16:26:06 02/24/20 25 03/02/2025 QNATA L(R) ADVAN CARLITOS limitations SEE NOTE [...] place ntal in origi n. Not Available [facility] [address] [place], [address], 03/02/2025 16:26:06 02/24/2003/02/2025 QNATA L(R) ADVAN CARLITOS specificatio ns SEE [...] judith tical asses sment . Not Available [facility] [address] [place], [address], 03/02/2025 16:26:06 02/24/2003/02/2025 QNATA L(R) ADVAN CARLITOS [...] senta tion of seque nces from the [facility] basil regio ns invol sonam in 1p36 micro delet ion syndr ome (1p36 ), Hebert- Hirsc hhorn syndr ome (4p), Cri-d u-andrés t syndr ome (5p), Jane r-Gie naya syndr ome (8q), Vishal sen syndr ome (11q) , Prade r Willi syndr ome/A ngelm an syndr [...] been revie wed by FDA. Not Available [address] [place], [address], 03/02/2025 16:26:06 02/24/2003/02/2025 CHLAM YDIA/ N. GONOR RHOEA E RNA, TMA, UROGE NITAL chlamydia trachomatis RNA, tma, urogenital NOT DETECT ED not detect ed normal Not Available [facility] [address], [address], 03/02/2025 16:26:07 02/24/20 25 03/02/2025 CHLAM YDIA/ N. GONOR RHOEA E RNA, TMA, UROGE NITAL neisseria gonorrhoeae RNA, tma, urogenital NOT DETECT ED not detect ed normal Not Available [facility] [address] [address] [place], [address], 03/02/2025 16:26:07 02/24/20 25 03/02/2025 CHLAM YDIA/ [...] e refer to https ://ed ucati on.qu estCubiez. [employer]/f aq/FA Q154 (This link is being provi ded for infor bossman mchugh/ educa yosef l purpo ses only. ) Not Available [facility] [address] [address], [place], [address], 03/02/2025 16:26:07 02/24/20 25 03/02/2025 RPR (DX) W/REF L TITER AND T. PALLI DUM AB, IA RPR (DX) w/refl titer and confirmatory testing NON-RE ACTIVE non-re active normal No labor atory evide nce of syphi lis. If recen t expos ure is suspe cted, submi t a new sampl e in 2-4 weeks . Not Available [facility] [address] [address] [address], [place], [address], 03/02/2025 16:26:07 02/24/20 25 03/02/2025 ANTIB AFSHIN [...] alloi mmuni zed pregn nolan. Not Available [address], [address], 03/02/2025 16:26:08 02/24/2003/02/2025 ABO GROUP AND RH TYPE ABO group A Not Available [facility] [address], [address], 03/02/2025 16:26:08 02/24/2003/02/2025 ABO GROUP AND RH TYPE Rh type RH(D) POSITI VE For addit ional infor terese villalpando refer to http: //[facility] jamie Elizondo stDia gnost ics.c om/fa q/FAQ 111 (This link is being provi ded for infor bossman bell/ educifeoma barrow purpo ses only. ) Not Available [facility] [address] [place], [address], 03/02/2025 16:26:08 02/24/2003/02/2025 DRUG MONIT OR, PANEL 1, SCREE N, URINE amphetamines NEGATI VE NG/mL <500 See Note A See Note A Not Available [facility] [address] [address] [place], [address], 03/02/2025 16:26:08 02/24/2003/02/2025 DRUG MONIT OR, PANEL 1, SCREE N, URINE barbiturates NEGATI VE NG/mL <300 See Note A See Note A Not Available [facility] [address] [place], [address], 03/02/2025 16:26:08 02/24/2003/02/2025 DRUG MONIT OR, PANEL 1, SCREE N, URINE benzodiazepi dorothea NEGATI VE NG/mL <100 See Note A See Note A Not Available [facility] [address] [address] [place], [address], 03/02/2025 16:26:08 02/24/2003/02/2025 DRUG MONIT OR, PANEL 1, SCREE N, URINE cocaine metabolite NEGATI VE NG/mL <150 See Note A See Note A Not Available [facility] [address] [address] [address], [place], [address], 03/02/2025 16:26:08 02/24/2003/02/2025 DRUG MONIT OR, PANEL 1, SCREE N, URINE marijuana metabolite NEGATI VE NG/mL <20 See Note A See Note A Not Available [facility] [address] [address] [address], [place], [address], 03/02/2025 16:26:08 02/24/2003/02/2025 DRUG MONIT OR, PANEL 1, SCREE N, URINE methadone metabolite NEGATI VE NG/mL <100 See Note A See Note A Not Available [facility] [address] [address] [address], [place], [address], 03/02/2025 16:26:08 02/24/2003/02/2025 DRUG MONIT OR, PANEL 1, SCREE N, URINE opiates NEGATI VE NG/mL <100 See Note A See Note A Not Available [facility] [address] [address] [address], [place], [address], 03/02/2025 16:26:08 02/24/2003/02/2025 DRUG MONIT OR, PANEL 1, SCREE N, URINE oxycodone NEGATI VE NG/mL <100 See Note A See Note A Not Available [facility] [address] [address] [address], [place], [address], 03/02/2025 16:26:08 02/24/2003/02/2025 DRUG MONIT OR, PANEL 1, SCREE N, URINE phencyclidin e NEGATI VE NG/mL <25 See Note A See Note A Not Available [facility] [address] [address] [address], [place], [address], 03/02/2025 16:26:08 02/24/2003/02/2025 DRUG MONIT OR, PANEL 1, SCREE N, URINE creatinine 236.6 mg/dL > or = 20.0 Not Available [address] [address] [address] , [place], [address], 03/02/2025 16:26:08 02/24/2003/02/2025 DRUG MONIT OR, PANEL 1, SCREE N, URINE pH 7.4 4.5-9. 0 Not Available [address] [address] [place], [address], 03/02/2025 16:26:08 02/24/2003/02/2025 DRUG MONIT OR, PANEL 1, SCREE N, URINE oxidant NEGATI VE mcg/m L <200 Not Available [address] [address] [place], [address], 03/02/2025 16:26:08 02/24/2003/02/2025 CULTU RE, URINE , ROUTI NE culture, urine, routine SEE NOTE abnormal CULTU RE, URINE , ROUTI NE Micro Numbe r: [id number] Test Statu s: Final Speci men [...] lexin and lorac arbef . Not Available [facility] [address] [place], [address], 03/02/2025 16:26:09 02/01/20 25 01/19/2025 US, obste tric, 1st trime ster No observ ation record ed. [email or web address] [facility] ([facility]) [address] [place], [address], 01/31/2025 17:19:55 Result Notes None recorded. Problems Name Problem SNOMED Code Status Onset Date Resolution Date Notes Provider Name and Address Organization Details Recorded Time Otitis 18946422 Active 2021 OTITIS; 02/11/20 9:46AM by Kathy Hilliard, Office Visit; Promoted ; acuity set as *; OTITIS, RIGHT; 02/11/20 9:47AM by Kathy Hilliard, Office Visit; Promoted ; acuity set as *; KATHY ARMINDA celis, [facility] 3 11:46:16 Anxiety 31398829 Active 2022 KATHY ARMINDA celis, [facility] 3 11:46:16 Acne vulgaris 49896377 Active 2022 KATHY celis, [facility] 3 11:46:16 Sprain of right knee [id number] 622348 Active 2022 Herbert Warren MD [address] [place] [address], [phone], [facility] 3 16:24:18 Pregnanc y 84519494 Completed 202201/27/2024 [facility] 12:33:11 Gestatio n period, 11 weeks 58963820 Active 2023 Herbert Warren MD [address] [place] [address], [phone], [facility] 4 10:51:57 Gestatio n period, 15 weeks 9566037 Active 2023 Herbert Warren MD [address] [place] [address], [phone], [facility] 4 18:26:38 Gestatio n period, 19 weeks 46054101 Active 2023 Herbert Warren MD [address] [place] [address], [phone], [facility] 4 10:52:28 Gestatio n period, 23 weeks 01627250 Active 2023 Herbert Warren MD [address] [place] [address], [phone], [facility] 4 16:57:20 Gestatio n period, 27 weeks 62553515 Active 2023 Herbert Warren MD [address] [place] [address], [phone], [facility] 4 16:22:57 Gestatio n period, 30 weeks 11303047 Active 2023 Herbert Warren MD [address] [place] [address], [phone], [facility] 4 08:36:42 Gestatio n period, 31 weeks 61368541 Active 2023 Herbert Warren MD [address] [place] [address], [phone], [facility] 4 16:35:11 Gestatio n period, 34 weeks 15820175 Active 2023 Herbert Warren MD [address] [place] [address], [phone] 5, [facility] 4 17:19:46 Gestatio n period, 37 weeks 68364095 Active 2023 Herbert Warren MD [address] [place] [address], [address] 5, [facility] 4 16:41:10 Gestatio n period, 38 weeks 69485869 Active 2023 Herbert Warren MD [address] [place] [address], [address] 5, [facility] 4 14:05:05 Gestatio n period, 39 weeks 58477283 Active 2023 Herbert Warren MD [address] [place] [address], [phone], [facility] 4 08:28:39 Superfic ial thrombop hlebitis 7407249 Active 2023 Herbert Warren MD [address] [place] [address], [address] [place] [address] 5, [facility], LRocLRocCRoc 4 09:23:19 Mass of joint of right knee 24990783838 150262 Active 2023 Herbert Warren MD [address] [place] [address], [phone], [facility] LRocLRoc[facility] 4 12:13:15 Pain of right knee region 95519616877 4105 Active 2023 Herbert Warren MD [address] [place] [address], [id number] 5, [facility], [facility] 4 17:09:03 Contact dermatit is [id number] Active 2024 Herbert Warren MD [address] [place] [address], [id number] 5, [facility], [facility] 5 13:12:04 Seasonal allergic rhinitis 528683205 Active 2024 Herbert Warren MD [address] [place] [address], [id number] 5, [facility], [facility] 5 13:12:11 Pregnanc y 40319848 [facility] 5 12:33:11 Postural dizzines s 338420603 Active 2024 Herbert Warren MD [address] [place], [address], [facility], [place] 5 17:49:13 Acute gastroen teritis 31448423 Active 2024 Herbert Warren MD [address] [place], [id number], [facility], [place] 5 17:49:26 Gestatio n period, 14 weeks 63345037 Active 2024 Herbert Warren MD [address] [place], [phone], [facility], [place] 5 15:38:26 Problem Notes None recorded. Procedures Surgical History Date Name Laterality Status Provider Name and Address Organization Details Recorded Time Appendectomy completed [facility] 17:40:43 procedure on urinary bladder completed [facility], MaurizioCRoc 06/15/2024 17:40:52 tonsilectomy/arpita oids [facility] 11/05/2022 16:00:00 Imaging Results None recorded. Procedure Notes None recorded. Medical Equipment None Reported. Allergies Allergen ID Allergen Name Allergen Category Reaction Reaction Severity Criticality Documentation Date Start Date Code Code System Note Provider Name and Address Organization Details Recorded Time 5042 Product containin g penicilli n (product) medicatio n Not available Not available Not available 11/04/2022 89599 8001 SNOMED [facility] 14:22:05 5043 amoxicill in medicatio n Not available Not available Not available 11/04/2022 723 RxNorm [facility]is [facility] 16:11:49 97738 codeine medicatio n rash Not available low 12/26/2022 2670 RxNorm KATHY HILLIARD lalita [facility], [facility]. 16:12:05 Medications Name Sig Start Date Stop [...] e 50 mcg/actua tion nasal spray,georgette pension [place] 1 spray every day by intranas al route. 03/14 completed Not Available Not Available Not Available Vitamin 27 mg iron-0.8 mg tablet Take 1 tablet every day by oral route. 01/244 completed Not Available Not Available Not Available [...] and Address Organization Details Last Updated DateTime 5 157.48 cm 98.11 % 37.8 kg/m2 45556.9 g 99 % 107 /min 18 /min 97.9 [degF] 118/74 mm[Hg] Alanna Gasca [facility], L.L.CRoc 5 09:37:50 Social History Question Answer Notes LastModified by Organizat ion Details LastModified Time Tobacco Smoking Status Never Smoker Telma Cote lalita [facility], LRocLBrice 06/15/2024 17:40:23 What Is Your Level Of Caffeine Consumption? None [email or web address] Information not available 02/14/2025 Do You Or Have You Ever Used Marijuana? Never Used [email or web address] Information not available 02/14/2025 What Was The Date Of Your Most Recent Tobacco Screening? 03/14/2025 [email or web address] Information not available 03/14/2025 Sex: Unknown Functional Status Question Answer Note LastModified by Organizat ion Details LastModified Time Do you use any illicit or recreational drugs? No [email or web address] Information not available 02/14/2025 What is your level of alcohol consumption? None [email or web address] Information not available 02/14/2025 Mental Status None [...] Recorded Time HPV9 9 completed KATHY celis [facility], RobetrLRocCRoc 04/10/2023 08:15:44 IPV 9 completed KATHY celis [facility], LRocLRocCRoc 04/10/2023 08:15:44 MMR 1 completed KATHY celis [facility], RobertLRocCRoc 04/10/2023 08:15:44 MMR 7 completed KATHY celis [facility], RobertLBrice 04/10/2023 08:15:44 pneumococcal conjugate PCV 7 6 completed KATHY celis, [facility] 04/10/2023 08:15:44 pneumococcal conjugate PCV 7 7 completed KATHY HILLIARD null, [facility] 04/10/2023 08:15:44 pneumococcal conjugate PCV 7 6 completed KATHY HILLIARD null, [facility] 04/10/2023 08:15:44 pneumococcal conjugate PCV 7 7 completed KATHY HILLIARD null, [facility] 04/10/2023 08:15:44 DTaP-IPV 1 completed KATHY celis, [facility] 04/10/2023 08:15:44 Tdap 9 completed KATHY celis, [facility] 04/10/2023 08:15:44 Pneumococcal conjugate PCV 13 1 completed KATHY celis, [facility] 04/10/2023 08:15:44 varicella 1 completed KATHY celis, [facility] 04/10/2023 08:15:44 varicella 7 completed KATHY celis, [facility] 04/10/2023 08:15:44 HPV, quadrivalent 9 completed KATHY celis, [facility] 04/10/2023 08:15:44 Hep B, adolescent or pediatric 6 completed KATHY celis, [facility] 04/10/2023 08:15:44 Hep A, ped/adol, 2 dose 8 completed KATHY celis, [facility] 04/10/2023 08:15:44 Hep A, ped/adol, 2 dose 9 completed KATHY DAWNG null, [facility] 04/10/2023 08:15:44 Hib (PRP-T) 6 completed KATHY ARMINDA null, [facility] 04/10/2023 08:15:44 Hib (PRP-T) 7 completed KATHY ARMINDA null, [facility] 04/10/2023 08:15:44 Hib (PRP-T) 6 completed KATHY DAWNG null, [facility] 04/10/2023 08:15:44 Hib (PRP-T) 7 completed KATHY DAWNG null, [facility] 04/10/2023 08:15:44 meningococcal MCV4P 9 completed KATHY DAWNG null, [facility] 04/10/2023 08:15:44 DTaP 8 completed KATHY DAWNG null, [facility] 04/10/2023 08:15:44 DTaP-Hep B-IPV 6 completed KATHY HILLIARD null, [facility] 04/10/2023 08:15:44 DTaP-Hep B-IPV 7 completed KATHY DAWNG null, [facility] 04/10/2023 08:15:44 DTaP-Hep B-IPV 6 completed KATHY ARMINDA null, [facility] 04/10/2023 08:15:44 meningococcal conjugate quadrivalent, MenACWY-TT (MCV4) 3 completed Not Available [facility] 03/14/2025 14:14:40 Tdap 4 completed Not Available [facility] 03/14/2025 14:14:40 Hep B, adolescent or pediatric 8 completed PANKAJ Brizuela [facility], Rodrigo 04/10/2023 08:15:44 Past Encounters Encounter ID Performer Location Encounter Start Date Encounter Closed Date Diagnosis/Indication Diagnosis SNOMED-CT Code Diagnosis ICD10 Code Diagnosis IMO Codes Diagnosis Note [id number] PEPITO BERNSTEIN [facility] ([facility]) [address] [place] [phone] 01/16/2025 13:50:58 01/16/2025 15:50:09 Blood pressure above reference range 95719737 R03.0 571508 BP reading normal here in clinic. Reassuranc e provided. Continue monitoring bp BID and call OB with results. [id number] Herbert Warren MD [facility] ([facility]) [address] [place] [address] [phone] 01/18/2025 12:49:26 01/23/2025 16:04:13 [id number] Herbert Warren MD [facility] ([facility]) [address] [place] [address] [phone] 5 02/14/2025 09:24:08 02/14/2025 10:24:44 Normal [id number] Z34.90 - Maintain regular follow-up. Due date September 12 with follow-up in a month for continued progress assessment . Allergic rhinitis 418227 04 J30.9 - Manage with continued use of Claritin or Zyrtec alongside Tylenol and nasal sprays. Adjust as needed based on symptom response. Health Concerns Section Related Observation LastModified by Organization Detai ls LastModified Time None Recorded Concern Status LastModified by Organization Details LastModified Time None Recorded Payers Encounter Date Sequence Insurance Name Policy Number Policy Ro Covered Member ID Ro Member ID Guarantor Name 02/14/2025 1 [facility] (MEDICAID HMO) Lorenza Cerna [id number] Lorenza Cerna Notes Date Note Type Note Provider Name and Address Organization Details Recorded Time 02/14/2025 text/html jr ob routineRep orted by PatientHPIFor associated symptoms, patient reportsno abdominal [...] particularly troublesome at night, leading to nausea. Cibc-aiz-evowwpq medications have failed to alleviate her symptoms, and she experienced chronic drainage causing throat irritation as evidenced by cobblestoning. The patient denies systemic symptoms such as fever or ear pain. Her is currently at 10 weeks and progressing normally, with a targeted due date of September 12. Herbert Warren MD [address] [place] [address], [phone], [facility] 02/14/2025 10:59:21 OBGyn Episode Ob Episode Information Episode Created Date Number of Fetuses Patient Bloodtype Patient rh Status Prepregnancy Weight lbs Domestic Partner Domestic Partner Phone Father Name Pile Driver Operator Helper Status 01/04/20 25 1 A Positive [address] [place] [address] OPEN Fetus Data First Name Last [...] Weeks Gestation Final Zeeshan Confirmed By Final Zeeshna Confirmed Date Final Zeeshan Date Ultra Sound Latest Days Gestation 0 09/13/19 26 0 Pre-margarito Flowsheet Flowsheet Date 01/03/2025 Tristan Score Blood Edema Fundus Height Fundus Units Glucose Ketones Leukocytes Nitrite Labor Signs Protein Cervic Dilation Cervic Effacement Cervic Station Type Weight in lbs Pre/Post Dialysis Refused Weight 205.360768583478 BP Diastolic BP Location Tested BP Systolic BP Type 74 122 Fetus Heart Rate Present Fetus Movement Comments Flowsheet Date 01/09/2025 Tristan Score Blood Edema Fundus Height Fundus Units Glucose Ketones Leukocytes Nitrite Labor Signs Protein Cervic Dilation Cervic Effacement Cervic Station Type Weight in lbs Pre/Post Dialysis Refused With clothes 206.768363218635 BP Diastolic BP Location Tested BP Systolic BP Type 90 L arm 142 sitting Fetus Heart Rate Present Fetus Movement Comments Flowsheet Date 01/16/2025 Tristan Score Blood Edema Fundus Height Fundus Units Glucose Ketones Leukocytes Nitrite Labor Signs Protein Cervic Dilation Cervic Effacement Cervic Station Type Weight in lbs Pre/Post Dialysis Refused Weight 203.715799777444 BP Diastolic BP Location Tested BP Systolic [...] in lbs Pre/Post Dialysis Refused With clothes 206.804859188992 BP Diastolic BP Location Tested BP Systolic BP Type 74 L arm 118 sitting Fetus Heart Rate Present Fetus Movement A No Comments Flowsheet Date 03/14/2025 Tristan Score Blood Edema Fundus Height Fundus Units Glucose Ketones Leukocytes Nitrite Labor Signs Protein Cervic Dilation Cervic Effacement Cervic Station none none Negative trace Type Weight in lbs Pre/Post Dialysis Refused Weight 203.611626985147 BP Diastolic BP Location Tested BP Systolic BP Type Fetus Heart Rate Present A 150 Fetus Movement Comments Menstrual History Last Menstrual Date Menses Monthly On Bcp Conception Prior Menses Frequency Hcg Plus Date Menarche Onset Age 0712/01/2024 Genetic Screening And Infection History Question Response Note Patient's Age Will Be 35 Years Or Older At Estim ated Date of Delivery false Thalassemia (Setswana, Tongan, Mediterranean, Or Background): MCV < 80 false Neural Tube Defect (Meningomyelocele, Spina Bifi da, Or Anencephaly) false Congenital Heart Defect false Down Syndrome false Zack-Sachs (eg, Oriental Orthodox, Cajun, Citizen Of [place]) f alse Laurent Disease false Sickle Cell Disease Or Trait () false Hemophilia Or Other Blood Disorders false Muscular Dystrophy false Cystic Fibrosis true Erie's Chorea false Intellectual Disability/Autism true If Yes, [...]
--- NOTE | 2025-04-12 00:02 | ED_ITS ---
HPI - Abdominal Pain 2 General: Chief Complaint: Abdominal Pain Stated Complaint: V\Cramping Time Seen by Provider: 04/12/25 00:02 History of Present Illness: This is a 19-year-old female who is approximately 18 weeks who presents emergency room with nausea and vomiting and lower abdominal pain. She had had an ultrasound early in and is scheduled to see her OB for an ultrasound soon. No vaginal discharge. No vaginal bleeding. No dysuria. Some mild diarrhea. Pain in the pelvic area and to the right. Also epigastric cramping. Related Data Previous Rx's ?Medication ?Instructions ?Recorded ondansetron 8 mg disintegrating 8 mg PO Q6H #14 tabs 1 06/13/24 tablet Allergies Allergy/AdvReac Type Severity Reaction Status Date / Time Penicillins Allergy RASH Verified 08/10/24 20:34 Review of Systems 2 Narrative: Constitutional symptoms: Negative except as documented in HPI. Skin symptoms: Negative except as documented in HPI. Eye symptoms: Negative except as documented in HPI. ENMT symptoms: Negative except as documented in HPI. Respiratory symptoms: Negative except as documented in HPI. Cardiovascular symptoms: Negative except as documented in HPI. Gastrointestinal symptoms: Negative except as documented in HPI. Genitourinary symptoms: Negative except as documented in HPI. Musculoskeletal symptoms: Negative except as documented in HPI. Neurologic symptoms: Negative except as documented in HPI. Psychiatric symptoms: Negative except as documented in HPI. Endocrine symptoms: Negative except as documented in HPI. 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 Procedure done: Right arthroscopic knee surgery with partial lateral meniscectomy, chondroplasty of the patella, and synovectomy. Surgeon: Mary Lou Quevedo MD. Status post laparoscopic cholecystectomy (06/20/21) S/P laparoscopic appendectomy (08/21/20) H/O myringotomy S/P tonsillectomy and adenoidectomy Social History (Reviewed 01/02/25 @ 11:54 by JOSE MANUEL Milton Smoking and tobacco/nicotine status: never used tobacco/nicotine Second hand smoke exposure: No Alcohol intake: never Substance/Drug Use: never Physical Exam 2 Narrative: EXAM NARRATIVE: General: Alert, no acute distress. Skin: Warm, dry. Head: Normocephalic, atraumatic. Neck: Supple, trachea midline. Eye: Extraocular movements are intact. Ears, nose, mouth and throat: mucosa moist. Cardiovascular: Regular, Normal peripheral perfusion. Respiratory: Lungs are clear to auscultation, respirations are non-labored, breath sounds are equal, Symmetrical chest wall expansion. Gastrointestinal: Soft, Nontender, Non distended Musculoskeletal: Normal ROM, no deformity. Neurological: Alert and oriented, No focal neurological deficit observed. Psychiatric: Cooperative, appropriate mood & affect. Course 2 Vital Signs: Vital signs: Vital Signs Temperature 98.2 F 04/11/25 23:45 Pulse Rate 97 04/12/25 01:27 Respiratory Rate 16 04/12/25 01:27 Blood Pressure 104/70 04/12/25 01:27 Pulse Oximetry 97 04/12/25 01:27 Oxygen Delivery Me thod Room Air 04/12/25 01:27 MDM - Abdominal Pain Medical Decision Making Medical decision making Patient's reason for coming to the emergency room: Nausea vomiting, abdominal pain Social determinants: Patient works at [employer]. I reviewed the patient's medical record. Patient was last seen in early January in the emergency room with concerns I reviewed the patient's current home meds No chronic home medications. Alternate historians: None Differential diagnosis: including but not limited to and based on the above HPI, review of systems and physical exam: Patient likely has a gastroenteritis but given her lower abdominal pain on top of this of her concerns an ultrasound is being ordered. Basic lab work. Rule out dehydration/renal failure. Orders placed to evaluate differential diagnosis based on the above differential, HPI and physical exam Ultrasound shows normal 18-week 6-day intrauterine gestation. Heart rate 152. No abnormalities. This was reviewed and interpreted by myself the emergency room physician. I also reviewed the radiology report. Lab Review: Laboratory results were reviewed and interpreted by myself the emergency room physician. Leukocytosis. No anemia. No renal failure. No signs of urine infection. She does appear dehydrated. Reexamination: Patient appears much improved after fluids and IV Zofran. Assessment and plan: Nausea and vomiting Dehydration ?IV fluids and IV Zofran. - Discharged home - Discussed plan with patient. Answered any questions. - Evaluation and treatment of this problem were appropriate in the emergency setting. Lab Data 04/12/25 01:20 04/12/25 01:20 Labs/Radiology: Radiology Impressions Ultrasound 04/12/25 00:06 IMPRESSION: 1. Single live intrauterine gestation of 18 weeks 6 days +/-1 week 2 days corresponding favorably with patient's clinical dates. 2. Estimated date of delivery 09/07/2025. 3. Regular cardiac rhythm 152 bpm. 4. No abnormality of anatomy or placental anatomy. 5. Ventricular outflow tracts not visualized. Laboratory Results WBC 20.38 10^3/uL (4.5-13.0) H 04/12/25 01:20 RBC 4.80 10^6/uL (3.85-5.65) 04/12/25 01:20 Hgb 13.70 g/dL (12.4-14.8) 04/12/25 01:20 Hct 41.1 % (36-47) 04/12/25 01:20 MCV 85.6 fl (85-98) 04/12/25 01:20 MCH 28.5 pg (27-33) 04/12/25 01:20 MCHC 33.3 g/dL (30-55) 04/12/25 01:20 RDW 13.3 % (12.1-15.1) 04/12/25 01:20 Plt Count 255 10^3/cmm (157-399) 04/12/25 01:20 MPV 9.3 fL (7.4-10.4) 04/12/25 01:20 Neut % (Auto) 91.3 % 04/12/25 01:20 Lymph % (Auto) 6.0 % 04/12/25 01:20 [place] % (Auto) 2.2 % 04/12/25 01:20 Eos % (Auto) 0.0 % 04/12/25 01:20 Baso % (Auto) 0.1 % 04/12/25 01:20 Neut # (Auto) 18.58 10^3/uL (1.8-8.0) H 04/12/25 01:20 Lymph # (Auto) 1.2 10^3/uL (1.5-6.5) L 04/12/25 01:20 [place] # (Auto) 0.5 10^3/uL (0.2-0.9) 04/12/25 01:20 Eos # (Auto) 0.0 10^3/uL (0.0-0.8) 04/12/25 01:20 Baso # (Auto) 0.0 10^3/uL (0.0-0.1) 04/12/25 01:20 Nucleated RBC % (auto) 0 % 04/12/25 01:20 Nucleated RBCs # 0.0 /100WBC 04/12/25 01:20 Sodium 137 mmol/L (136-145) 04/12/25 01:20 Potassium 3.8 mmol/L (3.5-5.1) 04/12/25 01:20 Chloride 101 mmol/L (98-107) 04/12/25 01:20 Carbon Dioxide 23 mmol/L (22-29) 04/12/25 01:20 Anion Gap 16.8 (5-19) 04/12/25 01:20 BUN 8 mg/dL (6-20) 04/12/25 01:20 Creatinine 0.5 mg/dL (0.5-0.9) 04/12/25 01:20 GFR Calculation 158.9 mL/min (90-130) H 04/12/25 01:20 Glucose 93 mg/dL (65-115) 04/12/25 01:20 Calculated Osmolality 282 mOsm/kg (285-295) L 04/12/25 01:20 Calcium 9.3 mg/dL (8.5-10.5) 04/12/25 01:20 Total Bilirubin 0.4 mg/dL (0.15-1.2) 04/12/25 01:20 AST 12 U/L (0-32) 04/12/25 01:20 ALT 10 U/L (0-33) 04/12/25 01:20 Alkaline Phosphatase 92 U/L (35-105) 04/12/25 01:20 Total Protein 7.9 g/dL (6.6-8.7) 04/12/25 01:20 Albumin 4.2 g/dL (3.5-5.2) 04/12/25 01:20 Globulin 3.7 g/dL (1.3-4.6) 04/12/25 01:20 Lipase 31 U/L (13-60) 04/12/25 01:20 HCG, Qual Positive (Negative) H 04/12/25 01:20 Urine Color Dark yellow (Yellow) A 04/12/25 01:20 Urine Appearance Clear (CLEAR) 04/12/25 01:20 Urine pH 6.0 (5-7) 04/12/25 01:20 Ur Specific [place] 1.033 (1.005-1.030) H 04/12/25 01:20 Urine Protein 1+ (Negative) A 04/12/25 01:20 Urine Glucose (UA) Negative (Normal) 04/12/25 01:20 Urine Ketones 3+ (Negative) H 04/12/25 01:20 Urine Blood Negative (Negative) 04/12/25 01:20 Urine Nitrate Negative (Negative) 04/12/25 01:20 Urine Bilirubin 1+ (Negative) H 04/12/25 01:20 Urine Urobilinogen 1.0 mg/dL (Negative) 04/12/25 01:20 Ur Leukocyte Esterase Negative (Negative) 04/12/25 01:20 Urine RBC 0-2 /hpf (0-2) 04/12/25 01:20 Urine WBC 6-10 /hpf (0-5) 04/12/25 01:20 Ur Squamous Epith Cells 11-20 /hpf (0-5) H 04/12/25 01:20 Amorphous Sediment Not Reportable 04/12/25 01:20 Urine Bacteria Trace /hpf (NONE) 04/12/25 01:20 Hyaline Casts 2.87 /lpf 04/12/25 01:20 All radiology interpretation(s) finalized by discharge Discharge Plan Discharge Patient Disposition: Home Clinical Impression: Gastroenteritis, , Dehydration Condition: Stable Prescriptions: New ondansetron 8 mg tablet,disintegrating 8 mg PO Q6H Qty: 14 0RF Rx Instructions: Take 1/2-1 tab every 6 hours as needed for nausea and vomiting Discharge Orders: Discharge ED (Routine); Ordered 04/12/25 Ordered By: Criselda Lindsey Referrals: Tulio Warren MD [Primary Care Provider, Family Practice] Discharge Diet: Usual diet Discharge Activity: Increase activity as tolerated Patient Instructions: Nausea and Vomiting in (ED), Opioid Safety, Pain Management, Patient Portal & Homero Instructions Activity Restrictions/Additional Instructions: Thank you for choosing [facility] for your healthcare needs today. You have been screened and evaluated and felt safe for discharge. Health conditions do change or evolve sometimes and as such it is important that you follow up with your Primary Doctor to be re checked, 3-5 days is a general good time frame for follow up. You are always welcome to return to the ED for re assessment if your symptoms are worsening or you have new concerns Print Language: Azeri Coding Level of Care Code ED Loan Examiner for Narciso Horan
--- NOTE | 2025-04-12 00:06 | USR_ITS ---
PROCEDURE INFORMATION: Exam: US After First Trimester, Transabdominal Exam date and time: 04/12/2025 12:41 AM Age: 19 years old Clinical indication: complicated by abdominal or pelvic pain; Generalized abdominal pain; Second trimester (14 weeks 0 days to 27 weeks 6 days); Gestational age or lmp: 18w 1d by lmp; ; G2-p1-a0-l1 presenting with cramping, no vaginal bleeding; Additional info: Low abd pain, cramping. 18 weeks LABS AND CLINICAL REPORTS: Last menstrual period start date: 12/06/2024 Gestational age (Established): 18 w 1 d Estimated due date (Established): 09/12/2025 TECHNIQUE: Imaging protocol: Real-time transabdominal obstetrical ultrasound of the maternal pelvis and a second or third trimester with image documentation. Total images: 169 COMPARISON: 1. US OB >= 14 weeks fetus [id number] 07/15/2023 2:49 PM 2. US abdomen complete* [id number] 06/04/2021 11:59 AM FINDINGS: Gestation: Single live intrauterine gestation. heart rate: 152 bpm presentation and position: Breech Placenta: Anterior grade 0 placenta without previa. Amniotic fluid (Qualitative): Amniotic fluid volume is normal. Amniotic fluid index: CARROLL is 16.08 cm. ANATOMY: midline falx: midline falx is normal. cerebellum: cerebellum is normal. lateral ventricles: lateral ventricles are normal. cisterna magna: cisterna magna is normal. choroid plexus: choroid plexus is normal. face: Upper lip is obscured by positioning. heart four-chamber view, heart size and position: heart four-chamber view, size, and position are normal. heart right ventricular outflow tract: RVOT not visualized. heart left ventricular outflow tract: LVOT not visualized. situs: situs is normal. kidneys: kidneys are normal. stomach: stomach is normal. urinary bladder: bladder is normal. spine: No visualized abnormalities of spine. Umbilical cord and insertion: umbilical cord insertion site into the abdomen is normal. 3-vessel umbilical cord is seen. upper limbs: No visualized abnormalities of arms/hands. lower limbs: legs and feet: No visualized abnormalities of legs/feet. external genitalia: No visualized abnormalities. BIOMETRY: Gestational age (AUA): 18 w 6 d Estimated due date (AUA): 09/07/2025 Estimated weight: 264.64 g. EFW by AC, BPD, FL, HC, Hadlock 1985 Biparietal diameter (BPD): 4.14 cm. EGA (BPD) is 18 w 4 d. 68.7 % percentile Head circumference (HC): 15.78 cm. EGA (HC) is 18 w 5 d. 68.4 % percentile Abdominal circumference (AC): 13.67 cm. EGA (AC) is 19 w 1 d. 78.2 % percentile Femur length (FL): 2.87 cm. EGA (FL) is 18 w 6 d. 69.4 % percentile HC/AC: 1.15. (Normal range: 1.09 - 1.26) FL/HC: 18.19. (Normal range: 16.06 - 18.26) FL/BPD: 69.32 FL/AC: 20.99 MATERNAL: Uterus: Unremarkable. Cervix: Cervical length measures 4.1 cm. Right ovary/adnexa: Obscured by lack of adequate acoustic window. Left ovary/adnexa: Obscured by lack of adequate acoustic window. Intraperitoneal space: No intraperitoneal free fluid. US/US OB >= 14 weeks fetus [id number] IMPRESSION: 1. Single live intrauterine gestation of 18 weeks 6 days +/-1 week 2 days corresponding favorably with patient's clinical dates. 2. Estimated date of delivery 09/07/2025. 3. Regular cardiac rhythm 152 bpm. 4. No abnormality of anatomy or placental anatomy. 5. Ventricular outflow tracts not visualized.
--- NOTE | 2025-04-12 00:49 | PC.NURSE ---
us at bedside.
[2025-04-12] MEDS: ondansetron 2 mg/ML SDV 2 mL 4 MG IVP (01:26)
[2025-04-12 01:27] VITALS: BP 104/70; PULSE 97; RESP 16; O2SAT 97
[2025-04-12 02:00] LABS: Glucose Urine UA Negative (Normal); Nitrate Urine Negative (Negative)
[2025-04-12 02:04] LABS: Hematocrit 41.1 % (36-47); Hemoglobin 13.70 g/dL (12.4-14.8); Mean Corpuscular HGB Conc 33.3 g/dL (30-55); Mean Corpuscular Hemoglobin 28.5 pg (27-33); Mean Corpuscular Volume 85.6 fl (85-98); Nucleated Red Blood Cells % 0 %; Platelet Count 255 10^3/cmm (157-399); Red Blood Count 4.80 10^6/uL (3.85-5.65); White Blood Count 20.38 10^3/uL (4.5-13.0)
[2025-04-12 02:07] LABS: Specific Gravity, Urine 1.033 (1.005-1.030)
[2025-04-12 02:21] LABS: HCG, Serum Qual Positive (Negative)
[2025-04-12 02:30] LABS: Alanine Aminotransferase 10 U/L (0-33); Albumin Level 4.2 g/dL (3.5-5.2); Alkaline Phosphatase 92 U/L (35-105); Anion Gap 16.8 (5-19); Aspartate Amino Transferase 12 U/L (0-32); Blood Urea Nitrogen 8 mg/dL (6-20); Calcium 9.3 mg/dL (8.5-10.5); Carbon Dioxide 23 mmol/L (22-29); Chloride 101 mmol/L (98-107); Globulin 3.7 g/dL (1.3-4.6); Glucose 93 mg/dL (65-115); Lipase 31 U/L (13-60); Osmolality Calculated 282 mOsm/kg (285-295); Potassium 3.8 mmol/L (3.5-5.1); Sodium 137 mmol/L (136-145); Total Protein 7.9 g/dL (6.6-8.7)
[2025-04-12 02:51] VITALS: BP 103/61; PULSE 99; RESP 16; O2SAT 97
== END 2025-04-12 03:02 | disposition home or self-care (01) ==
PROVIDERS: Emergency Provider Emergency Medicine; PCP Family Medicine
DX: O99.612 Diseases of the digestive system complicating pregnancy, second trimester (principal); Z3A.18 18 weeks gestation of pregnancy; K52.9 Noninfective gastroenteritis and colitis, unspecified; O26.892 Other specified pregnancy related conditions, second trimester; E86.0 Dehydration
CPT/HCPCS: 36415; 76805; 80053; 81001; 83690; 84703; 85025; 96374; 99284; J2405; J7030